=== PATIENT | female | born 1960 | race Caucasian/White ===

== ENCOUNTER 2018-07-27 13:48 | Observation (INO) ==
[2018-07-27] MEDS ORDERED: Mag Sulf 1 gm/100 ml Premix 100 ML IV.SIG ONE ×2 (16:55→20:00)
[2018-07-27] MEDS ORDERED: Potassium Chlor 20 mEq Premix 20 MEQ/100 ML PIGGYBACK IV.SIG ONE (16:55)
[2018-07-27] MEDS ORDERED: Calcium Gluconate Inj 1 GM in Dextrose 5% in Water Inj 100 ML IV.SIG ONE ×2 (17:05)
--- NOTE | 2018-07-27 17:05 | ED ---
HPI General Chief Complaint: Recheck/Abnormal Lab/Rx Stated Complaint: CHEMO PT / ABNOMRALLY LOW LABS Time Seen by Provider: 07/27/18 16:45 Source: patient Mode of arrival: ambulatory Limitations: no limitations History of Present Illness HPI narrative: 58-year-old female complaint generalized malaise and hypokalemia. Patient has history of throat cancer on chemotherapy. Patient has labs done recently and was found to have low sodium, low potassium. Patient was seen by personal physician 3 days ago and given IV potassium replacement and prescription for oral potassium supplement. Patient had repeat potassium level checked again today and was advised that potassium was low. Patient was advised to go to emergency room for evaluation. Patient denies any chest pain or shortness of breath. MD complaint: Reports abnormal lab Initial visit (ago): day(s) Initial visit for: other (Low potassium) Returns today for: called because of abnormal lab/test Description of abnormal result: Low potassium Symptoms since prior visit: Reports no new symptoms Context: Reports called for abnormal lab result Associated symptoms: Reports malaise Treatments prior to arrival: Reports other medications Related Data Home Medications Medication Instructions Recorded Confirmed Aleve PM 245 mg PO HS PRN 07/27/18 07/27/18 amlodipine 0 mg PO DAILY 07/27/18 07/27/18 amlodipine 10 mg PO DAILY 07/27/18 07/27/18 atenolol 25 mg PO DAILY 07/27/18 07/27/18 omeprazole 0 mg PO DAILY 07/27/18 07/27/18 Allergies Allergy/AdvReac Type Severity Reaction Status Date / Time lisinopril Allergy Severe Anaphylaxis Unverified 07/27/18 16:57 codeine Allergy Mild NAUSEA Unverified 07/27/18 16:57 amlodipine Allergy Unknown unknown Unverified 07/27/18 16:57 diclofenac Allergy Unknown unknown Unverified 07/27/18 16:57 etodolac Allergy Unknown unknown Unverified 07/27/18 16:57 flurbiprofen Allergy Unknown unknown Unverified 07/27/18 16:57 ibuprofen Allergy Unknown unknown Unverified 07/27/18 16:57 indomethacin Allergy Unknown unknown Unverified 07/27/18 16:57 ketoprofen Allergy Unknown unknown Unverified 07/27/18 16:57 ketorolac Allergy Unknown unknown Unverified 07/27/18 16:57 naproxen Allergy Unknown unknown Unverified 07/27/18 16:57 oxaprozin Allergy Unknown unknown Unverified 07/27/18 16:57 tramadol Allergy Unknown Nausea/Vomi Unverified 07/27/18 16:58 ting Review of Systems ROS: all other systems reviewed are negative PMFSH History History Provided By: Patient Medical History Medical History Hx of hysterectomy (Acute) Hypertension (Acute) Rheumatoid arthritis (Acute) Throat cancer (Acute) Surgical History Surgical History Hx of appendectomy (Acute) Hx of foot surgery (Acute) Hx of knee surgery (Acute) Hx of tonsillectomy (Acute) Social History Social History Substance History: No History of Abuse Second Hand Smoke Exposure: No Smoking Status: Current every day smoker Tobacco Type: Cigarettes How Often Do You Have a Drink Containing Alcohol: 4 or more times a week Recent Travel in [facility] within the Last 8 Weeks: No Recent Out of Country Travel within the Last 8 Weeks: No Exam Narrative Exam Narrative: GENERAL: Well-nourished, well-developed patient. SKIN: Focused skin assessment warm/dry. HEAD: Normocephalic. EYES: No scleral icterus. No injection or drainage. NECK: Supple, trachea midline. No JVD or lymphadenopathy. CARDIOVASCULAR: Regular rate and rhythm without murmurs, gallops, or rubs. RESPIRATORY: Breath sounds equal bilaterally. No accessory muscle use. GASTROINTESTINAL: Abdomen soft, non-tender, nondistended. MUSCULOSKELETAL: No cyanosis, or edema. BACK: Nontender without obvious deformity. No CVA tenderness. Neurologic exam normal. Course Initial Documented Vital Signs Temperature 99.4 F 07/27/18 14:11 Pulse Rate 80 07/27/18 14:11 Blood Pressure 95/64 L 07/27/18 14:11 Pulse Oximetry 97 07/27/18 14:11 Last Documented Vital Signs Temperature 99.4 F 07/27/18 20:00 Pulse Rate 74 07/27/18 20:00 Respiratory Rate 18 07/27/18 20:00 Blood Pressure 108/74 07/27/18 20:00 Pulse Oximetry 98 07/27/18 19:02 Medical Decision Making MDM Narrative Medical decision making narrative: 58-year-old female with generalized malaise and low potassium, low sodium, low calcium and low magnesium level. Normal saline solution with 20 KCl per liter at 100 cc an hour. Magnesium sulfate 1 g IV. Calcium gluconate 1 g IV. KCl 40 mEq p.o. given. KCl 40 mEq IV given. Medical Screen Exam Complete: Yes Emergency Medical Condition: Yes Differential Diagnosis Differential Diagnosis: Differential diagnosis including electrolyte abnormality , dehydration. Lab Data Lab results reviewed: Yes I reviewed the patient's lab results. Result diagrams: 07/27/18 17:22 07/27/18 17:22 Lab Results 07/27/18 07/27/18 07/27/18 Range/Units 17:22 17:22 18:56 CBC w Diff Slide review pending WBC 2.4 L (4.0-11.0) th/mm3 RBC 3.32 L (4.00-5.30) mil/mm3 Hgb 11.5 L (11.6-15.3) gm/dL Hct 32.5 L (35.0-46.0) % MCV 98.1 (80.0-100.0) fL MCH 34.6 H (27.0-34.0) pg MCHC 35.3 (32.0-36.0) % RDW 14.3 (11.6-17.2) % Plt Count 154 D (150-450) th/mm3 MPV 7.9 (7.0-11.0) fL Neut % (Auto) 80.0 H (16.0-70.0) % Lymph % (Auto) 5.3 L (9.0-44.0) % [place] % (Auto) 12.4 H (0.0-8.0) % Eos % (Auto) 0.8 (0.0-4.0) % Baso % (Auto) 1.5 (0.0-2.0) % Neut # (Auto) 2.0 (1.8-7.7) th/mm3 Lymph # (Auto) 0.1 L (1.0-4.8) th/mm3 [place] # (Auto) 0.3 (0.0-0.9) th/mm3 Eos # (Auto) 0.0 (0.0-0.4) th/mm3 Baso # (Auto) 0.0 (0.0-0.2) th/mm3 WBC Differential . Diff Scan Auto diff confirmed Differential Comment . Platelet Estimate Normal (Normal) Platelet Morphology Normal (Normal) RBC Morphology Normal (Normal) Sodium 125 L (136-145) meq/L Potassium 2.6 L* (3.5-5.1) meq/L Chloride 88 L (98-107) meq/L Carbon Dioxide 23.7 (21.0-32.0) meq/L Anion Gap 13 (5-15) meq/L BUN 5 L (7-18) mg/dL Creatinine 0.61 (0.50-1.00) mg/dL Estimated GFR Greater than 89 (>89) mL/min Random Glucose 108 H (74-106) mg/dL Calcium 6.2 L* (8.5-10.1) mg/dL Prot Corrected Calcium 6.8 L* (8.5-10.1) mg/dL Phosphorus 2.7 (2.5-4.9) mg/dL Magnesium 0.8 L (1.5-2.5) mg/dL Total Protein 5.8 L (6.4-8.2) g/dL TSH 1.830 (0.358-3.740) uIU/mL Urine Color Straw (Yellw/Straw) Urine Clarity Slightly cloudy (Clear) Urine pH 7.0 (5.0-8.5) Ur Specific [place] Less/equal 1.005 (1.002-1.035) Urine Protein Negative (Neg-Trace) mg/dL Urine Glucose (UA) Negative (Negative) mg/dL Urine Ketones Negative (Negative) mg/dL Urine Occult Blood Negative (Negative) Urine Nitrate Positive H (Negative) Urine Bilirubin Negative (Negative) Urine Urobilinogen 0.2 (Less than 2) mg/dL Ur Leukocyte Esterase Moderate H (Negative) Urine RBC 0-3 (0-3) /hpf Urine WBC 9-20 H (0-5) /hpf Ur Squamous Epith Cells Greater than 10 H (0-5) /hpf Urine Bacteria Many H (None) /hpf Micro UA Comment Culture indicated Ur Microscopic Review Microscopic reviewed Urine Culture Comments Culture indicated Discharge Plan Discharge Disposition Patient Disposition: 30 Still Patient Discharge Details Diagnosis: Acute hypokalemia, Acute hyponatremia, Hypomagnesemia, Hypocalcemia Physicians Team ED Provider: Bertin Bhatt Primary Care Provider: Logan Mejía Attending Provider: Andi Haynes Discharge Interventions Interventions: ED Discharge Assessment Last Done: 07/27/18 19:50 Status ED Status: Left Department Discharge Information Discharge Date/Time: 07/27/18 19:50
[2018-07-27 17:43] LABS: Baso % (Auto) 1.5 % (0.0-2.0); Eos % (Auto) 0.8 % (0.0-4.0); Hematocrit 32.5 % (35.0-46.0); Hemoglobin 11.5 gm/dL (11.6-15.3); Lymph # (Auto) 0.1 th/mm3 (1.0-4.8); Lymph % (Auto) 5.3 % (9.0-44.0); Mean Corpuscular HGB Conc 35.3 % (32.0-36.0); Mean Corpuscular Hemoglobin 34.6 pg (27.0-34.0); Mean Corpuscular Volume 98.1 fL (80.0-100.0); Mean Platelet Volume 7.9 fL (7.0-11.0); Mono # (Auto) 0.3 th/mm3 (0.0-0.9); Mono % (Auto) 12.4 % (0.0-8.0); Platelet Count 154 th/mm3 (150-450); Red Blood Count 3.32 mil/mm3 (4.00-5.30); Red Cell Distribution Width 14.3 % (11.6-17.2); White Blood Count 2.4 th/mm3 (4.0-11.0)
[2018-07-27 18:15] LABS: Platelet Estimate Normal (Normal); Platelet Morphology Normal (Normal); RBC Morphology Normal (Normal)
[2018-07-27 18:34] LABS: Anion Gap 13 meq/L (5-15); Blood Urea Nitrogen 5 mg/dL (7-18); Calcium 6.2 mg/dL (8.5-10.1); Carbon Dioxide 23.7 meq/L (21.0-32.0); Chloride 88 meq/L (98-107); Glomerular Filtration Rate Greater Than 89 mL/min (>89); Glucose,Random 108 mg/dL (74-106); Magnesium 0.8 mg/dL (1.5-2.5); Phosphorus 2.7 mg/dL (2.5-4.9); Sodium 125 meq/L (136-145)
[2018-07-27 18:37] LABS: Potassium 2.6 meq/L (3.5-5.1)
[2018-07-27] MEDS ORDERED: Bisacodyl 10 MG Supp RECTAL PRN (18:55)
[2018-07-27] MEDS ORDERED: Acetaminophen 325 MG Tablet PO PRN (18:55)
[2018-07-27 18:57] LABS: Total Protein 5.8 g/dL (6.4-8.2)
[2018-07-27 19:03] LABS: Bilirubin,Urine Negative (Negative); Clarity,Urine Slightly Cloudy (Clear); Glucose,Urine (UA) Negative (Negative); Leukocyte Esterase,Urine Moderate (Negative); Nitrite,Urine Positive (Negative); Specific Gravity,Urine Less/Equal 1.005 (1.002-1.035); Urobilinogen,Urine 0.2 mg/dL (Less than 2)
[2018-07-27 19:04] LABS: Color,Urine Straw (Yellw/Straw)
[2018-07-27 19:09] LABS: Bacteria,Urine Many /hpf; RBC,Urine 0-3 /hpf (0-3); Squamous Epithelial Cell,Urine Greater than 10 /hpf (0-5)
[2018-07-27] MEDS ORDERED: Magnesium Oxide 400 MG Tablet PO SCH (21:30)
[2018-07-27] MEDS ORDERED: Potassium Bicarbonate 25 MEQ Effervescent Tablet PO ONE (21:30)
[2018-07-27] MEDS: Calcium Carbonate 500 MG Tablet PO SCH (22:42)
[2018-07-27] MEDS: Potassium Chlor 20 mEq Premix 20 MEQ/100 ML PIGGYBACK IV.SIG ONE (23:33)
[2018-07-28 02:27] LABS: Chloride 92 meq/L (98-107); Potassium 3.3 meq/L (3.5-5.1); Sodium 128 meq/L (136-145)
[2018-07-28 02:41] LABS: Anion Gap 12 meq/L (5-15); Blood Urea Nitrogen 4 mg/dL (7-18); Calcium 6.1 mg/dL (8.5-10.1); Glomerular Filtration Rate Greater Than 89 mL/min (>89); Glucose,Random 94 mg/dL (74-106); Magnesium 1.4 mg/dL (1.5-2.5)
[2018-07-28 02:53] LABS: Total Protein 5.3 g/dL (6.4-8.2)
[2018-07-28] MEDS ORDERED: Mag Sulf 1 gm/100 ml Premix 100 ML IV.SIG ONE (03:26)
[2018-07-28] MEDS ORDERED: Calcium Gluconate Inj 1 GM in Dextrose 5% in Water Inj 100 ML IV.SIG ONE ×2 (04:00)
[2018-07-28] MEDS: Potassium Chlor 20 mEq Premix 20 MEQ/100 ML PIGGYBACK IV.SIG ONE (04:24)
[2018-07-28 04:47] VITALS: TEMP 96.6
[2018-07-28 06:40] LABS: Chloride 92 meq/L (98-107); Potassium 3.1 meq/L (3.5-5.1); Sodium 128 meq/L (136-145)
[2018-07-28 06:41] LABS: Hematocrit 35.3 % (35.0-46.0); Hemoglobin 12.1 gm/dL (11.6-15.3); Mean Corpuscular HGB Conc 34.2 % (32.0-36.0); Mean Corpuscular Hemoglobin 33.8 pg (27.0-34.0); Mean Corpuscular Volume 98.7 fL (80.0-100.0); Mean Platelet Volume 8.3 fL (7.0-11.0); Platelet Count 144 th/mm3 (150-450); Red Blood Count 3.58 mil/mm3 (4.00-5.30); Red Cell Distribution Width 14.6 % (11.6-17.2); White Blood Count 1.7 th/mm3 (4.0-11.0)
[2018-07-28 06:59] LABS: Anion Gap 12 meq/L (5-15); Blood Urea Nitrogen 4 mg/dL (7-18); Calcium 6.6 mg/dL (8.5-10.1); Carbon Dioxide 24.3 meq/L (21.0-32.0); Glomerular Filtration Rate Greater Than 89 mL/min (>89); Glucose,Random 92 mg/dL (74-106); Magnesium 1.9 mg/dL (1.5-2.5)
[2018-07-28] MEDS ORDERED: Potassium Bicarbonate 25 MEQ Effervescent Tablet PO ONE (07:51)
[2018-07-28] MEDS ORDERED: Magnesium Oxide 400 MG Tablet PO SCH (07:51)
[2018-07-28 08:25] VITALS: BP 111/74; PULSE 71; RESP 16; O2SAT 99
[2018-07-28] MEDS ORDERED: Potassium Bicarbonate 25 MEQ Effervescent Tablet PO SCH (09:00)
[2018-07-28] MEDS ORDERED: Pantoprazole Sodium 20 MG DR Tablet PO SCH (09:00)
[2018-07-28] MEDS: Calcium Carbonate 500 MG Tablet PO SCH (10:31)
--- NOTE | 2018-07-28 11:00 | P.HP ---
History of Present Illness Primary Care Physician: Logan Mejía Chief Complaint: Generalized malaise and multiple electrolyte abnormalities History of Present Illness: This is a 58-year-old female with a history of alcohol abuse, hypertension, rheumatoid arthritis, neuropathy and throat cancer on chemotherapy and radiation therapy. Patient was sent by her oncologist to the emergency room because of multiple significant electrolyte abnormalities including sodium 125 potassium 2.6 magnesium 0.8 and calcium 6.8. Patient only complaint is weakness which is actually improving. Denies nausea, vomiting, UTI symptoms and diarrhea. She admits to poor oral intake. She tells me she will be taking food supplements. She also drinks 2 beers daily and will at back on it. Today she has no complaints and wants to be discharge. Her electrolytes are much improved potassium of 3.1, sodium 128, magnesium 1.9 and calcium 7.1. All other systems reviewed negative Review of Systems All other systems reviewed negative except as stated in HPI PMFSH - History History Provided By: Patient - Medical History Medical History: Medical History (Last Reviewed 07/28/18 @ 10:59 by Andi Haynes MD) Hx of hysterectomy Hypertension Rheumatoid arthritis Throat cancer - Surgical History Surgical History: Surgical History (Last Reviewed 07/28/18 @ 10:59 by Andi Haynes MD) Hx of appendectomy Hx of foot surgery Hx of knee surgery Hx of tonsillectomy - Family History Family History: Family History (Last Updated 07/28/18 @ 10:59 by Andi Haynes MD) Other No pertinent family history - Tobacco History Second Hand Smoke Exposure: No Tobacco Use In Past 30 Days: Yes Smoking Status: Current every day smoker Tobacco Type: Cigarettes - Alcohol History How Often Do You Have a Drink Containing Alcohol: 4 or more times a week - Substance Use History Substance History: No History of Abuse - Travel History Recent Travel in the [place] Within the Last 8 Weeks: No Recent Travel Out of the Country Within the Last 8 Weeks: No - Immunization History Tetanus Immunization: Unsure Medications and Allergies Active Medications: Active Medications Acetaminophen (Tylenol) 650 mg PO Q4H PRN PRN Reason: Temp > 100.4 Al Hydroxide/Mg Hydroxide (Milk Of Magnesia Liq) 30 ml PO Q12H PRN PRN Reason: Mild Constipation Bisacodyl (Dulcolax Supp) 10 mg RECTAL DAILY PRN PRN Reason: SEVERE CONSITIPATION Calcium Carbonate (Oscal) 1,000 mg PO BID [facility] Last Admin: 07/28/18 10:31 Dose: 1,000 mg Potassium Chloride/Sodium Chloride (Ns + Kcl 20 Meq Inj) 1,000 mls @ 100 mls/ hr IV.CONT .Q10H [facility] Last Infusion: 07/28/18 06:00 Dose: 100 mls/hr Lactulose (Lactulose Liq) 30 ml PO DAILY PRN PRN Reason: SEVERE CONSITIPATION Magnesium Oxide (Mag-Ox) 400 mg PO BID [facility] Last Admin: 07/28/18 10:31 Dose: 400 mg Ondansetron HCl (Zofran Inj) 4 mg IV.PUSH Q6H PRN PRN Reason: NAUSEA OR VOMITING Pantoprazole Sodium (Protonix) 20 mg PO DAILY [facility] Last Admin: 07/28/18 10:31 Dose: 20 mg Potassium Bicarbonate (Effer-K) 50 meq PO DAILY [facility] Last Admin: 07/28/18 10:31 Dose: 50 meq Sennosides (Senokot) 17.2 mg PO Q12H PRN PRN Reason: Moderate Constipation Allergies Allergy/AdvReac Type Severity Reaction Status Date / Time lisinopril Allergy Severe Anaphylaxis Unverified 07/27/18 16:57 codeine Allergy Mild NAUSEA Unverified 07/27/18 16:57 amlodipine Allergy Unknown unknown Unverified 07/27/18 16:57 diclofenac Allergy Unknown unknown Unverified 07/27/18 16:57 etodolac Allergy Unknown unknown Unverified 07/27/18 16:57 flurbiprofen Allergy Unknown unknown Unverified 07/27/18 16:57 ibuprofen Allergy Unknown unknown Unverified 07/27/18 16:57 indomethacin Allergy Unknown unknown Unverified 07/27/18 16:57 ketoprofen Allergy Unknown unknown Unverified 07/27/18 16:57 ketorolac Allergy Unknown unknown Unverified 07/27/18 16:57 naproxen Allergy Unknown unknown Unverified 07/27/18 16:57 oxaprozin Allergy Unknown unknown Unverified 07/27/18 16:57 tramadol Allergy Unknown Nausea/Vomi Unverified 07/27/18 16:58 ting Home Medications Medication Instructions Recorded Confirmed Type Aleve PM 245 mg PO HS PRN 07/27/18 07/27/18 History amlodipine 0 mg PO DAILY 07/27/18 07/27/18 History amlodipine 10 mg PO DAILY 07/27/18 07/27/18 History atenolol 25 mg PO DAILY 07/27/18 07/27/18 History omeprazole 0 mg PO DAILY 07/27/18 07/27/18 History Exam Vital signs: Vital Signs 07/27/18 14:11 07/27/18 19:02 07/27/18 20:00 Temperature 99.4 F 99.4 F Pulse Rate 80 73 74 Respiratory Rate 16 18 Blood Pressure 95/64 L 103/78 108/74 Pulse Oximetry 97 98 07/27/18 21:45 07/28/18 00:00 07/28/18 04:45 Temperature 97.7 F 96.6 F L Pulse Rate 76 72 75 Respiratory Rate 18 18 Blood Pressure 102/72 99/67 L Pulse Oximetry 94 L 07/28/18 08:00 Temperature 96.6 F L Pulse Rate 71 Respiratory Rate 16 Blood Pressure 111/74 Pulse Oximetry 99 Intake & Output 07/27/18 07/28/18 07/28/18 18:59 06:59 18:59 Intake Total 100 / 100 1590 / 1590 Balance 100 / 100 1590 / 1590 Weight 51.3 kg 52.6 kg Intake: IV 100 / 100 1070 / 1070 NS + KCl 20 mEq Inj 1,000 ML @ 550 / 550 100 mls/hr IV.CONT .Q10H [facility] Rx #:[id number] Calcium Gluconate Inj 1 GM In 220 / 220 D5W Inj 100 ML @ 110 mls/hr IV. SIG ONCE ONE Rx#:[id number] Magnesium Sulfate 1 gm/D5W 100 100 / 100 200 / 200 ml Premix 100 ML @ 100 mls/hr IV.SIG ONCE ONE Rx#:[id number] KCl 20 mEq Premix Inj 20 meq In 100 / 100 100 ml @ 50 mls/hr IV.SIG ONCE ONE Rx#:[id number] Oral 520 / 520 Other: # Voids 4 Date of Last Bowel Movement 07/26/18 Weight On Admission 51.4 kg Narrative: GENERAL: WD WN in [place]. No signs of dehydration SKIN: Warm and dry. HEAD: Atraumatic. Normocephalic. EYES: Pupils equal and round. No scleral icterus. No injection or drainage. ENT: No nasal bleeding or discharge. Mucous membranes pink and moist. NECK: Trachea midline. No JVD. CARDIOVASCULAR: Regular rate and rhythm. RESPIRATORY: No accessory muscle use. Clear to auscultation. Breath sounds equal bilaterally. GASTROINTESTINAL: Abdomen soft, non-tender, nondistended. MUSCULOSKELETAL: Extremities without clubbing, cyanosis, or edema. No obvious deformities. NEUROLOGICAL: Awake and alert. No obvious cranial nerve deficits. Motor grossly within normal limits. Five out of 5 muscle strength in the arms and legs. Normal speech. PSYCHIATRIC: Appropriate mood and affect; insight and judgment normal. Results - Labs CBC & Chem 7: 07/28/18 05:27 07/28/18 05:27 Labs: Laboratory Results - last 24 hr 07/27/18 07/27/18 07/27/18 17:22 17:22 18:56 CBC w Diff Slide review pending WBC 2.4 L RBC 3.32 L Hgb 11.5 L Hct 32.5 L MCV 98.1 MCH 34.6 H MCHC 35.3 RDW 14.3 Plt Count 154 D MPV 7.9 Neut % (Auto) 80.0 H Lymph % (Auto) 5.3 L [place] % (Auto) 12.4 H Eos % (Auto) 0.8 Baso % (Auto) 1.5 Neut # (Auto) 2.0 Lymph # (Auto) 0.1 L [place] # (Auto) 0.3 Eos # (Auto) 0.0 Baso # (Auto) 0.0 WBC Differential . Diff Scan Auto diff confirmed Differential Comment . Platelet Estimate Normal Platelet Morphology Normal RBC Morphology Normal Sodium 125 L Potassium 2.6 L* Chloride 88 L Carbon Dioxide 23.7 Anion Gap 13 BUN 5 L Creatinine 0.61 Estimated GFR Greater than 89 Random Glucose 108 H Calcium 6.2 L* Prot Corrected Calcium 6.8 L* Phosphorus 2.7 Magnesium 0.8 L Total Protein 5.8 L TSH 1.830 Urine Color Straw Urine Clarity Slightly cloudy Urine pH 7.0 Ur Specific [place] Less/equal 1.005 Urine Protein Negative Urine Glucose (UA) Negative Urine Ketones Negative Urine Occult Blood Negative Urine Nitrate Positive H Urine Bilirubin Negative Urine Urobilinogen 0.2 Ur Leukocyte Esterase Moderate H Urine RBC 0-3 Urine WBC 9-20 H Ur Squamous Epith Cells Greater than 10 H Urine Bacteria Many H Micro UA Comment Culture indicated Ur Microscopic Review Microscopic reviewed Urine Culture Comments Culture indicated 07/28/18 07/28/18 07/28/18 02:05 05:27 05:27 CBC w Diff WBC 1.7 L RBC 3.58 L Hgb 12.1 Hct 35.3 MCV 98.7 MCH 33.8 MCHC 34.2 RDW 14.6 Plt Count 144 L MPV 8.3 Neut % (Auto) Lymph % (Auto) [place] % (Auto) Eos % (Auto) Baso % (Auto) Neut # (Auto) Lymph # (Auto) [place] # (Auto) Eos # (Auto) Baso # (Auto) WBC Differential Diff Scan Differential Comment Platelet Estimate Platelet Morphology RBC Morphology Sodium 128 L 128 L Potassium 3.3 L 3.1 L Chloride 92 L 92 L Carbon Dioxide 24.0 24.3 Anion Gap 12 12 BUN 4 L 4 L Creatinine 0.45 L 0.49 L Estimated GFR Greater than 89 Greater than 89 Random Glucose 94 92 Calcium 6.1 L* 6.6 L* Prot Corrected Calcium 6.9 L* 7.1 L* Phosphorus Magnesium 1.4 L D 1.9 Total Protein 5.3 L 6.0 L D TSH Urine Color Urine Clarity Urine pH Ur Specific [place] Urine Protein Urine Glucose (UA) Urine Ketones Urine Occult Blood Urine Nitrate Urine Bilirubin Urine Urobilinogen Ur Leukocyte Esterase Urine RBC Urine WBC Ur Squamous Epith Cells Urine Bacteria Micro UA Comment Ur Microscopic Review Urine Culture Comments Caprini VTE Risk Assessment Caprini VTE Risk Assessment: Moderate/High Risk (score >= 2) Caprini Risk Assessment Model: Point Value = 1 Point Value = 2 Point Value = 3 Point Value = 5 Age 41-60 Minor surgery BMI > 25 kg/m2 Swollen legs Varicose veins or History of unexplained or recurrent spontaneous Oral contraceptives or hormone replacement Sepsis (< 1 month) Serious lung disease, including pneumonia (< 1 month) Abnormal pulmonary function Acute myocardial infarction Congestive heart failure (< 1 month) History of inflammatory bowel disease Medical patient at bed rest Age 61-74 Arthroscopic surgery Major open surgery (> 45 min) Laparoscopic surgery (> 45 min) Malignancy Confined to bed (> 72 hours) Immobilizing plaster cast Central venous access Age >= 75 History of VTE Family history of VTE Factor V Leiden Prothrombin [id number] Lupus anticoagulant Anticardiolipin antibodies Elevated serum homocysteine Heparin-induced thrombocytopenia Other congenital or acquired thrombophilia Stroke (< 1 month) Elective arthroplasty Hip, pelvis, or leg fracture Acute spinal cord injury (< 1 month) Prophylaxis Regimen: Total Risk Factor Score Risk Level Prophylaxis Regimen 0-1 Low Early ambulation 2 Moderate Order ONE of the following: *Sequential Compression Device (SCD) *Heparin 5000 units SQ BID 3-4 Higher Order ONE of the following medications: *Heparin 5000 units SQ TID *Enoxaparin/Lovenox 40 mg SQ daily (WT < 150 kg, CrCl > 30 mL/min) *Enoxaparin/Lovenox 30 mg SQ daily (WT < 150 kg, CrCl > 10-29 mL/min) *Enoxaparin/Lovenox 30 mg SQ BID (WT < 150 kg, CrCl > 30 mL/min) AND/OR *Sequential Compression Device (SCD) 5 or more Highest Order ONE of the following medications: *Heparin 5000 units SQ TID (Preferred with Epidurals) *Enoxaparin/Lovenox 40 mg SQ daily (WT < 150 kg, CrCl > 30 mL/min) *Enoxaparin/Lovenox 30 mg SQ daily (WT < 150 kg, CrCl > 10-29 mL/min) *Enoxaparin/Lovenox 30 mg SQ BID (WT < 150 kg, CrCl > 30 mL/min) AND *Sequential Compression Device (SCD) Assessment and Plan - Plan This is a 58-year-old female with a history of alcohol abuse, hypertension, rheumatoid arthritis, neuropathy and throat cancer on chemotherapy and radiation therapy. Presents with multiple significant electrolyte abnormalities Hyponatremia, hypokalemia, hypomagnesemia and hypocalcemia secondary to poor nutrition from poor oral intake and alcohol abuse. She has history of throat cancer currently on chemotherapy and radiation treatments. She is clinically better with improved electrolyte abnormalities after aggressive replacement overnight. Patient will be discharged home with p.o. calcium, magnesium and potassium. Hyponatremia(Beer potomania) is expected to resolve with alcohol cessation. CIWA protocol. Leukopenia on chemotherapy. Monitor. Patient has an appointment with her oncologist tomorrow. Abnormal urinalysis. No UTI symptoms. Follow-up urine culture DVT prophylaxis with SCD and early ambulation Discharge Planning: Discharge patient to home Condition on discharge: Improved Regular Diet as tolerated Ad Kari activity no driving Rx written: Magnesium, potassium and calcium Follow-up with primary care physician, medical and radiation oncology
--- NOTE | 2018-07-28 15:19 | ECG ---
Date Performed: 07/27/2018 Time Performed: 17:14:24 PTAGE: 58 years EKG: Sinus rhythm MINIMAL ST DEPRESSION BORDERLINE ECG PREVIOUS TRACING : 10/28/2015 07.46 Since the previous tracing, no significant change noted DOCTOR: Johnathan Arreguin Interpretating Date/Time 07/28/2018 15:17:29
== END 2018-07-28 12:35 | disposition home or self-care (01) ==
LOC: PHED 13:48 → PHEDA 13:48 → PH3 19:50
PROVIDERS: ADMIT Internal Medicine; ATTEND Internal Medicine
DX: Z79.899 Other long term (current) drug therapy; B96.20 Unspecified Escherichia coli [E. coli] as the cause of diseases classified elsewhere; C32.1 Malignant neoplasm of supraglottis; M06.9 Rheumatoid arthritis, unspecified; D72.819 Decreased white blood cell count, unspecified; C05.1 Malignant neoplasm of soft palate; R53.81 Other malaise; I10 Essential (primary) hypertension; G62.9 Polyneuropathy, unspecified; F17.210 Nicotine dependence, cigarettes, uncomplicated; E87.6 Hypokalemia; E87.1 Hypo-osmolality and hyponatremia; E83.51 Hypocalcemia; E83.42 Hypomagnesemia; F10.10 Alcohol abuse, uncomplicated; C14.0 Malignant neoplasm of pharynx, unspecified

== ENCOUNTER 2018-09-21 06:47 | Inpatient (IN) ==
[2018-09-21] MEDS ORDERED: Pantoprazole Inj 40 MG Vial IV.PUSH ONE (07:17)
[2018-09-21] MEDS ORDERED: Sod Chloride 0.9% Inj 1,000 ML IV.SIG ONE (07:17)
--- NOTE | 2018-09-21 07:17 | ED ---
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 Patient had procedure started 1 month ago and had significant ulceration to the mouth and poor healing. Present is her states that she has significant anorexia and what he feels is significant depression. She refuses to eat or drink fluids despite the fact the ulceration in the mouth is largely healed. Additionally patient has had significant diarrhea since Friday. Related Data Home Medications Medication Instructions Recorded Confirmed omeprazole 20 mg PO DAILY 07/27/18 09/21/18 B Complex 1 tab PO DAILY 09/21/18 09/21/18 Probiotic 1 tab PO DAILY 09/21/18 09/21/18 Vitamin B-12 500 mg PO DAILY 09/21/18 09/21/18 Vitamin C 500 mg PO DAILY 09/21/18 09/21/18 amlodipine 10 mg PO DAILY 09/21/18 09/21/18 iron 28 mg PO DAILY 09/21/18 09/21/18 magnesium 250 mg PO DAILY 09/21/18 09/21/18 potassium 550 mg PO DAILY 09/21/18 09/21/18 Allergies Allergy/AdvReac Type Severity Reaction Status Date / Time lisinopril Allergy Severe Anaphylaxis Verified 09/21/18 07:24 codeine Allergy Mild NAUSEA Verified 09/21/18 07:24 tramadol Allergy Unknown Nausea/Vomi Verified 09/21/18 07:24 ting Review of Systems ROS: all other systems reviewed are negative [facility] Medical History Medical History Hypertension (Chronic) Rheumatoid arthritis (Chronic) Throat cancer (Chronic) Surgical History Surgical History H/O arthroscopic knee surgery (Acute) Hx of appendectomy (Acute) Hx of foot surgery (Acute) Hx of hysterectomy (Acute) Hx of knee surgery (Acute) Hx of tonsillectomy (Acute) Family History Family History Other No pertinent family history Social History Social History Substance History: No History of Abuse and Active Abuse Second Hand Smoke Exposure: Yes Smoking Status: Current every day smoker Tobacco Type: Cigarettes How Often Do You Have a Drink Containing Alcohol: 4 or more times a week Recent Travel in [facility] within the Last 8 Weeks: No Recent Out of Country Travel within the Last 8 Weeks: No Immunization History Tetanus Immunization: Unsure Exam Narrative Exam Narrative: GENERAL: Apathy with poor response. SKIN: Focused skin assessment warm/dry. HEAD: Atraumatic. Normocephalic. EYES: Pupils equal and round. No scleral icterus. No injection or drainage. ENT: No nasal bleeding or discharge. Mucous membranes pink and moist. Oral ulcerations NECK: Trachea midline. No JVD. Significant adenopathy CARDIOVASCULAR: Regular rate and rhythm. No murmur appreciated. RESPIRATORY: No accessory muscle use. Clear to auscultation. Breath sounds equal bilaterally. GASTROINTESTINAL: Abdomen soft, non-tender, nondistended. Hepatic and splenic margins not palpable. MUSCULOSKELETAL: No obvious deformities. No clubbing. No cyanosis. No edema. NEUROLOGICAL: Awake and alert. No obvious cranial nerve deficits. Motor grossly within normal limits. Normal speech. PSYCHIATRIC: Significant depression Course Initial Documented Vital Signs Temperature 97.6 F 09/21/18 07:06 Pulse Rate 75 09/21/18 07:06 Respiratory Rate 16 09/21/18 07:06 Blood Pressure 145/90 H 09/21/18 07:06 Pulse Oximetry 97 09/21/18 07:06 Last Documented Vital Signs Temperature 97.7 F 09/22/18 08:00 Pulse Rate 82 09/22/18 09:39 Respiratory Rate 22 09/22/18 08:00 Blood Pressure 155/95 H 09/22/18 08:00 Pulse Oximetry 96 09/22/18 08:00 Medical Decision Making MDM Narrative Medical decision making narrative: Hyponatremia and hypocalcemia as well as significant anorexia and depression. Medical Screen Exam Complete: Yes Emergency Medical Condition: Yes Medical Records Medical records reviewed: Yes I reviewed the patient's medical records. Lab Data Result diagrams: 09/22/18 04:50 09/21/18 17:45 Lab Results 09/21/18 09/21/18 09/21/18 Range/Units 07:50 07:50 07:50 CBC w Diff Auto diff final WBC 7.1 (4.0-11.0) th/mm3 RBC 3.47 L (4.00-5.30) mil/mm3 Hgb 10.9 L (11.6-15.3) gm/dL Hct 33.4 L (35.0-46.0) % MCV 96.3 (80.0-100.0) fL MCH 31.5 (27.0-34.0) pg MCHC 32.8 (32.0-36.0) % RDW 15.2 (11.6-17.2) % Plt Count 304 D (150-450) th/mm3 MPV 8.4 (7.0-11.0) fL Neut % (Auto) 90.2 H (16.0-70.0) % Lymph % (Auto) 4.1 L (9.0-44.0) % [place] % (Auto) 4.8 (0.0-8.0) % Eos % (Auto) 0.1 (0.0-4.0) % Baso % (Auto) 0.8 (0.0-2.0) % Neut # (Auto) 6.4 (1.8-7.7) th/mm3 Lymph # (Auto) 0.3 L (1.0-4.8) th/mm3 [place] # (Auto) 0.3 (0.0-0.9) th/mm3 Eos # (Auto) 0.0 (0.0-0.4) th/mm3 Baso # (Auto) 0.1 (0.0-0.2) th/mm3 WBC Differential . Differential Comment . ESR 42 H (0-30) mm/hr Sodium 126 L (136-145) meq/L Potassium 2.6 L* (3.5-5.1) meq/L Chloride 85 L (98-107) meq/L Carbon Dioxide 20.8 L (21.0-32.0) meq/L Anion Gap 20 H (5-15) meq/L BUN 3 L (7-18) mg/dL Creatinine 0.44 L (0.50-1.00) mg/dL Estimated GFR Greater than 89 (>89) mL/min Random Glucose 91 (74-106) mg/dL Calcium 5.2 L* (8.5-10.1) mg/dL Calcium Adj for Albumin 5.6 L* (8.5-10.1) mg/dL Magnesium Less than 0.3 L (1.5-2.5) mg/dL Total Bilirubin 0.5 (0.2-1.0) mg/dL AST 45 H (15-37) U/L ALT 16 (10-53) U/L Alkaline Phosphatase 71 (45-117) U/L Total Protein 6.1 L (6.4-8.2) g/dL Albumin 2.6 L (3.4-5.0) g/dL TSH 7.480 H (0.358-3.740) uIU/mL Free T4 (0.76-1.46) ng/dL Thyroxine (T4) (4.8-13.9) mcg/dL Urine Color (Yellw/Straw) Urine Clarity (Clear) Urine pH (5.0-8.5) Ur Specific [place] (1.002-1.035) Urine Protein (Neg-Trace) mg/dL Urine Glucose (UA) (Negative) mg/dL Urine Ketones (Negative) mg/dL Urine Occult Blood (Negative) Urine Nitrate (Negative) Urine Bilirubin (Negative) Urine Urobilinogen (Less than 2) mg/dL Ur Leukocyte Esterase (Negative) Urine RBC (0-3) /hpf Urine WBC (0-5) /hpf Ur Squamous Epith Cells (0-5) /hpf Urine Bacteria (None) /hpf Micro UA Comment Ur Microscopic Review Urine Culture Comments Stl C.difficile DNA Amp (Negative) St C. diff Tox Epid 027 (Negative) 09/21/18 09/21/18 09/21/18 Range/Units 08:10 16:00 17:45 CBC w Diff WBC (4.0-11.0) th/mm3 RBC (4.00-5.30) mil/mm3 Hgb (11.6-15.3) gm/dL Hct (35.0-46.0) % MCV (80.0-100.0) fL MCH (27.0-34.0) pg MCHC (32.0-36.0) % RDW (11.6-17.2) % Plt Count (150-450) th/mm3 MPV (7.0-11.0) fL Neut % (Auto) (16.0-70.0) % Lymph % (Auto) (9.0-44.0) % [place] % (Auto) (0.0-8.0) % Eos % (Auto) (0.0-4.0) % Baso % (Auto) (0.0-2.0) % Neut # (Auto) (1.8-7.7) th/mm3 Lymph # (Auto) (1.0-4.8) th/mm3 [place] # (Auto) (0.0-0.9) th/mm3 Eos # (Auto) (0.0-0.4) th/mm3 Baso # (Auto) (0.0-0.2) th/mm3 WBC Differential Differential Comment ESR (0-30) mm/hr Sodium 129 L (136-145) meq/L Potassium 2.6 L* (3.5-5.1) meq/L Chloride 91 L (98-107) meq/L Carbon Dioxide 19.8 L (21.0-32.0) meq/L Anion Gap 18 H (5-15) meq/L BUN 3 L (7-18) mg/dL Creatinine 0.31 L (0.50-1.00) mg/dL Estimated GFR Greater than 89 (>89) mL/min Random Glucose 76 (74-106) mg/dL Calcium Less than 5.0 L* (8.5-10.1) mg/dL Calcium Adj for Albumin 6.5 L* (8.5-10.1) mg/dL Magnesium (1.5-2.5) mg/dL Total Bilirubin (0.2-1.0) mg/dL AST (15-37) U/L ALT (10-53) U/L Alkaline Phosphatase (45-117) U/L Total Protein (6.4-8.2) g/dL Albumin 2.1 L (3.4-5.0) g/dL TSH (0.358-3.740) uIU/mL Free T4 1.08 (0.76-1.46) ng/dL Thyroxine (T4) 7.8 (4.8-13.9) mcg/dL Urine Color Yellow (Yellw/Straw) Urine Clarity Clear (Clear) Urine pH 6.5 (5.0-8.5) Ur Specific [place] 1.010 (1.002-1.035) Urine Protein Negative (Neg-Trace) mg/dL Urine Glucose (UA) Negative (Negative) mg/dL Urine Ketones 40 H (Negative) mg/dL Urine Occult Blood Negative (Negative) Urine Nitrate Negative (Negative) Urine Bilirubin Negative (Negative) Urine Urobilinogen 0.2 (Less than 2) mg/dL Ur Leukocyte Esterase Small H (Negative) Urine RBC 0-3 (0-3) /hpf Urine WBC 6-8 H (0-5) /hpf Ur Squamous Epith Cells 0-5 (0-5) /hpf Urine Bacteria Few H (None) /hpf Micro UA Comment Culture not ind Ur Microscopic Review Microscopic reviewed Urine Culture Comments Culture not ind Stl C.difficile DNA Amp (Negative) St C. diff Tox Epid 027 (Negative) 09/21/18 09/22/18 09/22/18 Range/Units 23:40 04:50 04:50 CBC w Diff WBC 6.1 (4.0-11.0) th/mm3 RBC 3.03 L (4.00-5.30) mil/mm3 Hgb 9.9 L (11.6-15.3) gm/dL Hct 29.5 L (35.0-46.0) % MCV 97.5 (80.0-100.0) fL MCH 32.6 (27.0-34.0) pg MCHC 33.5 (32.0-36.0) % RDW 15.8 (11.6-17.2) % Plt Count 265 (150-450) th/mm3 MPV 7.9 (7.0-11.0) fL Neut % (Auto) (16.0-70.0) % Lymph % (Auto) (9.0-44.0) % [place] % (Auto) (0.0-8.0) % Eos % (Auto) (0.0-4.0) % Baso % (Auto) (0.0-2.0) % Neut # (Auto) (1.8-7.7) th/mm3 Lymph # (Auto) (1.0-4.8) th/mm3 [place] # (Auto) (0.0-0.9) th/mm3 Eos # (Auto) (0.0-0.4) th/mm3 Baso # (Auto) (0.0-0.2) th/mm3 WBC Differential Differential Comment ESR (0-30) mm/hr Sodium (136-145) meq/L Potassium (3.5-5.1) meq/L Chloride (98-107) meq/L Carbon Dioxide (21.0-32.0) meq/L Anion Gap (5-15) meq/L BUN (7-18) mg/dL Creatinine (0.50-1.00) mg/dL Estimated GFR (>89) mL/min Random Glucose (74-106) mg/dL Calcium Less than 5.0 L* (8.5-10.1) mg/dL Calcium Adj for Albumin 6.5 L* (8.5-10.1) mg/dL Magnesium Less than 0.3 L (1.5-2.5) mg/dL Total Bilirubin (0.2-1.0) mg/dL AST (15-37) U/L ALT (10-53) U/L Alkaline Phosphatase (45-117) U/L Total Protein (6.4-8.2) g/dL Albumin 2.1 L (3.4-5.0) g/dL TSH (0.358-3.740) uIU/mL Free T4 (0.76-1.46) ng/dL Thyroxine (T4) (4.8-13.9) mcg/dL Urine Color (Yellw/Straw) Urine Clarity (Clear) Urine pH (5.0-8.5) Ur Specific [place] (1.002-1.035) Urine Protein (Neg-Trace) mg/dL Urine Glucose (UA) (Negative) mg/dL Urine Ketones (Negative) mg/dL Urine Occult Blood (Negative) Urine Nitrate (Negative) Urine Bilirubin (Negative) Urine Urobilinogen (Less than 2) mg/dL Ur Leukocyte Esterase (Negative) Urine RBC (0-3) /hpf Urine WBC (0-5) /hpf Ur Squamous Epith Cells (0-5) /hpf Urine Bacteria (None) /hpf Micro UA Comment Ur Microscopic Review Urine Culture Comments Stl C.difficile DNA Amp Negative (Negative) St C. diff Tox Epid 027 Negative (Negative) Discharge Plan Discharge Disposition Patient Disposition: ED Admit(ED Internal Use Only) Discharge Condition Condition: Stable Discharge Order Discharge Orders: ED Use Only Admit Order (Routine); Ordered 09/21/18 Ordered By: Damian Briones Discharge Details Diagnosis: Acute hypokalemia, Hypocalcemia, Hypothyroidism, Acute dehydration Physicians Team ED Provider: Damian Briones Primary Care Provider: Logan Mejía Attending Provider: Alix Meyer Status ED Status: Left Department Discharge Information Discharge Date/Time: 09/21/18 12:00
[2018-09-21] MEDS ORDERED: Sod Chloride 0.9% Inj 1,000 ML IV.CONT SCH (07:30)
[2018-09-21 07:57] LABS: Baso # (Auto) 0.1 th/mm3 (0.0-0.2); Baso % (Auto) 0.8 % (0.0-2.0); Eos % (Auto) 0.1 % (0.0-4.0); Hematocrit 33.4 % (35.0-46.0); Hemoglobin 10.9 gm/dL (11.6-15.3); Lymph # (Auto) 0.3 th/mm3 (1.0-4.8); Lymph % (Auto) 4.1 % (9.0-44.0); Mean Corpuscular HGB Conc 32.8 % (32.0-36.0); Mean Corpuscular Hemoglobin 31.5 pg (27.0-34.0); Mean Corpuscular Volume 96.3 fL (80.0-100.0); Mean Platelet Volume 8.4 fL (7.0-11.0); Mono # (Auto) 0.3 th/mm3 (0.0-0.9); Mono % (Auto) 4.8 % (0.0-8.0); Neut # (Auto) 6.4 th/mm3 (1.8-7.7); Neut % (Auto) 90.2 % (16.0-70.0); Platelet Count 304 th/mm3 (150-450); Red Blood Count 3.47 mil/mm3 (4.00-5.30); Red Cell Distribution Width 15.2 % (11.6-17.2); White Blood Count 7.1 th/mm3 (4.0-11.0)
[2018-09-21 08:25] LABS: Alanine Aminotransferase 16 U/L (10-53); Albumin 2.6 g/dL (3.4-5.0); Alkaline Phosphatase 71 U/L (45-117); Anion Gap 20 meq/L (5-15); Aspartate Aminotransferase 45 U/L (15-37); Blood Urea Nitrogen 3 mg/dL (7-18); Calcium 5.2 mg/dL (8.5-10.1); Carbon Dioxide 20.8 meq/L (21.0-32.0); Chloride 85 meq/L (98-107); Glomerular Filtration Rate Greater Than 89 mL/min (>89); Glucose,Random 91 mg/dL (74-106); Sodium 126 meq/L (136-145); Total Protein 6.1 g/dL (6.4-8.2)
[2018-09-21 08:31] LABS: Potassium 2.6 meq/L (3.5-5.1)
[2018-09-21] MEDS ORDERED: Calcium Gluconate Inj 1 GM in Dextrose 5% in Water Inj 100 ML IV.SIG ONE ×2 (08:53)
[2018-09-21] MEDS ORDERED: Potassium Chloride Inj 10 MEQ, Sodium Chloride 23.4% Inj 38.5 MEQ in Water for Inj, Ste... IV.CONT SCH (09:00)
[2018-09-21] MEDS: SODIUM CHLORIDE 0.45% IV.CONT SCH (10:12)
[2018-09-21] MEDS: POTASSIUM CHLORIDE IV.CONT SCH (10:12)
[2018-09-21] MEDS ORDERED: Bisacodyl 10 MG Supp RECTAL PRN (10:18)
[2018-09-21] MEDS ORDERED: Acetaminophen 325 MG Tablet PO PRN (10:18)
[2018-09-21] MEDS: Sod Chloride 0.9% Inj 1,000 ML IV.CONT SCH ×4 (10:20→19:30)
[2018-09-21 14:02] LABS: Free T4 (Free Thyroxine) 1.08 ng/dL (0.76-1.46); T4 (Thyroxine) 7.8 mcg/dL (4.8-13.9)
--- NOTE | 2018-09-21 15:11 | P.HPIM ---
History of Present Illness Primary Care Physician: Logan Mejía Patient is very very pleasant 58-year-old female with past medical history of rheumatoid arthritis, hypertension, neuropathy and throat cancer status post chemo and radiation therapy who presents to emergency room for worsening fatigue , generalized weakness, episode of diarrhea (nonbloody), weight loss, and reduced p.o. intake. As per time also present at the bedside patient completed latus treatment cycle 1 month ago and since then has had progressive decline requiring recent hospitalization approximately 2 weeks ago. Patient reports that she initially had oral sores in her mouth which made it very difficult to tolerate p.o. diet which led to reduced intake and subsequent decline. On presentation symptoms have recurred and has been reports that on Friday and Friday patient had profuse diarrhea which is since resolved but her nausea has not improved and she is progressively become weak and unable to tolerate p.o. intake. In regards to her diarrhea patient denies recent antibiotic use but does have a known history of recent hospitalization. Patient denies subjective fever or chills. Patient denies chest pain, blurry vision, headache, change in hearing or tinnitus, hemoptysis, or new skin changes including rash. As per prior documentation patient in the past has been offered opportunity for PEG and/or G-tube placement but has declined such therapy. In emergency department patient was found to have multiple I abnormalities including hypocalcemia and hypokalemia. Patient was initially supplemented with IV fluids with potassium and medicine was consulted for admission. Inpatient Certification Inpatient Certification: I certify that the inpatient services were ordered in accordance with Medicare regulations governing the order. This includes certification that hospital inpatient services are reasonable and necessary and in the case of services not specified as inpatient-only under 42 CFR 419.22(n), that they are appropriately provided as inpatient services in accordance to with the 2-midnight benchmark under 43 CFR 412.3(e) Estimated Total Length of Stay (Days): 3 Plans for Post Hospital Care: Home Review of Systems Review of Systems: all other systems reviewed are negative [facility] Medical History Medical History Hypertension (Chronic) Rheumatoid arthritis (Chronic) Throat cancer (Chronic) Surgical History Surgical History H/O arthroscopic knee surgery (Acute) Hx of appendectomy (Acute) Hx of foot surgery (Acute) Hx of hysterectomy (Acute) Hx of knee surgery (Acute) Hx of tonsillectomy (Acute) Family History Family History Other No pertinent family history Social History Social History Substance History: No History of Abuse and Active Abuse Second Hand Smoke Exposure: Yes Smoking Status: Current every day smoker Tobacco Type: Cigarettes How Often Do You Have a Drink Containing Alcohol: 4 or more times a week Recent Travel in [facility] within the Last 8 Weeks: No Recent Out of Country Travel within the Last 8 Weeks: No Immunization History Tetanus Immunization: Unsure Medications and Allergies Allergies Allergy/AdvReac Type Severity Reaction Status Date / Time lisinopril Allergy Severe Anaphylaxis Verified 09/21/18 07:24 codeine Allergy Mild NAUSEA Verified 09/21/18 07:24 tramadol Allergy Unknown Nausea/Vomi Verified 09/21/18 07:24 ting Home Medications Medication Instructions Recorded Confirmed Type omeprazole 20 mg PO DAILY 07/27/18 09/21/18 History B Complex 1 tab PO DAILY 09/21/18 09/21/18 History Probiotic 1 tab PO DAILY 09/21/18 09/21/18 History Vitamin B-12 500 mg PO DAILY 09/21/18 09/21/18 History Vitamin C 500 mg PO DAILY 09/21/18 09/21/18 History amlodipine 10 mg PO DAILY 09/21/18 09/21/18 History iron 28 mg PO DAILY 09/21/18 09/21/18 History magnesium 250 mg PO DAILY 09/21/18 09/21/18 History potassium 550 mg PO DAILY 09/21/18 09/21/18 History Active Medications: Active Medications Acetaminophen (Tylenol) 650 mg PO Q4H PRN PRN Reason: Temp > 100.4 Al Hydroxide/Mg Hydroxide (Milk Of Magnesia Liq) 30 ml PO Q12H PRN PRN Reason: Mild Constipation Bisacodyl (Dulcolax Supp) 10 mg RECTAL DAILY PRN PRN Reason: SEVERE CONSITIPATION Sodium Chloride (Ns Inj) 1,000 mls @ 250 mls/hr IV.CONT .Q4H EMELY Last Infusion: 09/21/18 13:00 Dose: 250 mls/hr Potassium Chloride 30 meq/ (Sodium Chloride) 1,015 mls @ 42 mls/hr IV.CONT .Q24H [facility] Last Infusion: 09/21/18 13:00 Dose: 42 mls/hr Lidocaine HCl (Xylocaine 2% Viscous) 15 ml SWISH-SPIT Q4H PRN PRN Reason: ORAL SORE Metoclopramide HCl (Reglan Inj) 5 mg IV.PUSH Q8H PRN; Protocol PRN Reason: NAUSEA Ondansetron HCl (Zofran Inj) 4 mg IV.PUSH Q6H PRN PRN Reason: NAUSEA OR VOMITING Senna/Docusate Sodium (Marly-Colace) 1 tab PO BID [facility] Sennosides (Senokot) 17.2 mg PO Q12H PRN PRN Reason: Moderate Constipation Sodium Chloride (Ns Flush) 2 ml IV.FLUSH BID EMELY Sodium Chloride (Ns Flush) 2 ml IV.FLUSH PRN PRN PRN Reason: FLUSH AFTER USING IV ACCESS Physical Exam Vital signs: Last Vital Signs Temp 97.8 F 09/21/18 12:40 Pulse 65 09/21/18 12:40 Resp 20 09/21/18 12:40 BP 137/88 09/21/18 12:40 Pulse Ox 99 09/21/18 12:40 Intake & Output 09/19/18 09/20/18 09/21/18 09/22/18 06:59 06:59 06:59 06:59 Intake Total 1194 / 1194 Balance 1194 / 1194 Weight 50 kg general: No acute distress, conversational. Cachectic HEENT: EOMI, PERRLA, healing oral ulcer on left pupil mucosa, poor dentition Cardiovascular: S1/S2 Respiratory: Clear to auscultation anteriorly and posteriorly. No wheezing, rales, or rhonchi Gastrointestinal: Soft, nontender, nondistended Extremity: 2+ right upper extremity radial pulse. No lower extremity edema Results Labs CBC & Chem 7: 09/21/18 07:50 09/21/18 17:45 Caprini VTE Risk Assessment Caprini VTE Risk Assessment: Moderate/High Risk (score >= 2) Caprini Risk Assessment Model: Point Value = 1 Point Value = 2 Point Value = 3 Point Value = 5 Age 41-60 Minor surgery BMI > 25 kg/m2 Swollen legs Varicose veins or History of unexplained or recurrent spontaneous Oral contraceptives or hormone replacement Sepsis (< 1 month) Serious lung disease, including pneumonia (< 1 month) Abnormal pulmonary function Acute myocardial infarction Congestive heart failure (< 1 month) History of inflammatory bowel disease Medical patient at bed rest Age 61-74 Arthroscopic surgery Major open surgery (> 45 min) Laparoscopic surgery (> 45 min) Malignancy Confined to bed (> 72 hours) Immobilizing plaster cast Central venous access Age >= 75 History of VTE Family history of VTE Factor V Leiden Prothrombin [id number] Lupus anticoagulant Anticardiolipin antibodies Elevated serum homocysteine Heparin-induced thrombocytopenia Other congenital or acquired thrombophilia Stroke (< 1 month) Elective arthroplasty Hip, pelvis, or leg fracture Acute spinal cord injury (< 1 month) Prophylaxis Regimen: Total Risk Factor Score Risk Level Prophylaxis Regimen 0-1 Low Early ambulation 2 Moderate Order ONE of the following: *Sequential Compression Device (SCD) *Heparin 5000 units SQ BID 3-4 Higher Order ONE of the following medications: *Heparin 5000 units SQ TID *Enoxaparin/Lovenox 40 mg SQ daily (WT < 150 kg, CrCl > 30 mL/min) *Enoxaparin/Lovenox 30 mg SQ daily (WT < 150 kg, CrCl > 10-29 mL/min) *Enoxaparin/Lovenox 30 mg SQ BID (WT < 150 kg, CrCl > 30 mL/min) AND/OR *Sequential Compression Device (SCD) 5 or more Highest Order ONE of the following medications: *Heparin 5000 units SQ TID (Preferred with Epidurals) *Enoxaparin/Lovenox 40 mg SQ daily (WT < 150 kg, CrCl > 30 mL/min) *Enoxaparin/Lovenox 30 mg SQ daily (WT < 150 kg, CrCl > 10-29 mL/min) *Enoxaparin/Lovenox 30 mg SQ BID (WT < 150 kg, CrCl > 30 mL/min) AND *Sequential Compression Device (SCD) Assessment and Plan Plan Oncology: Throat cancer Suspect ultralight abnormalities are multifactorial from previous treatments as well as reduced p.o. intake and episode of diarrhea. Supplement calcium Supplement potassium Repeat chemistry levels Patient endorsed symptoms of dizziness. Orthostatics x1 and continue IV fluid hydration Maintain patient on telemetry monitoring Magic mouthwash/viscous lidocaine swish and spit Physical therapy Dietary consultation. Suspect patient may have severe protein calorie malnutrition Patient will need to follow-up with oncology once stabilized and discharged. CODE STATUS full code DVT prophylaxis Disposition: MedSurg Diet: Liquid diet advance as tolerated
[2018-09-21 17:22] LABS: Bilirubin,Urine Negative (Negative); Clarity,Urine Clear (Clear); Color,Urine Yellow (Yellw/Straw); Glucose,Urine (UA) Negative (Negative); Leukocyte Esterase,Urine Small (Negative); Nitrite,Urine Negative (Negative); PH,Urine 6.5 (5.0-8.5); Urobilinogen,Urine 0.2 mg/dL (Less than 2)
[2018-09-21 17:28] LABS: Bacteria,Urine Few /hpf; RBC,Urine 0-3 /hpf (0-3); Squamous Epithelial Cell,Urine 0-5 /hpf (0-5)
[2018-09-21] MEDS: Nystatin/Diphenhydramine/Lidocaine Mouthwash (Adult) 120 ML Botttle SWISH-SWAL SCH ×2 (17:39→20:54)
[2018-09-21 18:22] LABS: Anion Gap 18 meq/L (5-15); Blood Urea Nitrogen 3 mg/dL (7-18); Carbon Dioxide 19.8 meq/L (21.0-32.0); Chloride 91 meq/L (98-107); Glomerular Filtration Rate Greater Than 89 mL/min (>89); Glucose,Random 76 mg/dL (74-106); Sodium 129 meq/L (136-145)
[2018-09-21 18:25] LABS: Potassium 2.6 meq/L (3.5-5.1)
[2018-09-21 18:38] LABS: Albumin 2.1 g/dL (3.4-5.0)
[2018-09-21 18:40] LABS: Calcium-Albumin Corrected 6.5 mg/dL (8.5-10.1)
[2018-09-21] MEDS ORDERED: Calcium Gluconate Inj 2 GM in Sodium Chlor 0.9% Inj 100 ML IV.SIG ONE (20:00)
[2018-09-21] MEDS ORDERED: Potassium Bicarbonate 25 MEQ Effervescent Tablet PO ONE (20:00)
--- NOTE | 2018-09-21 20:14 | ECG ---
Date Performed: 09/21/2018 Time Performed: 10:40:55 PTAGE: 58 years EKG: Sinus rhythm WITH SHORT MA INTERVAL MODERATE ST DEPRESSION ABNORMAL ECG PREVIOUS TRACING : 08/26/2018 11.06 Since the previous tracing, no significant change noted DOCTOR: Joelle Leblanc Interpretating Date/Time 09/21/2018 20:04:19
[2018-09-21] MEDS: Senna/Docusate Sodium 8.6/50 MG Tablet PO SCH (20:54)
[2018-09-22] MEDS: Sod Chloride 0.9% Inj 1,000 ML IV.CONT SCH ×2 (00:23→04:25)
[2018-09-22] MEDS: POTASSIUM CHLORIDE IV.CONT SCH ×2 (02:50→10:00)
[2018-09-22] MEDS: SODIUM CHLORIDE 0.45% IV.CONT SCH ×2 (02:50→10:00)
[2018-09-22 05:28] LABS: Hematocrit 29.5 % (35.0-46.0); Hemoglobin 9.9 gm/dL (11.6-15.3); Mean Corpuscular HGB Conc 33.5 % (32.0-36.0); Mean Corpuscular Hemoglobin 32.6 pg (27.0-34.0); Mean Corpuscular Volume 97.5 fL (80.0-100.0); Mean Platelet Volume 7.9 fL (7.0-11.0); Platelet Count 265 th/mm3 (150-450); Red Blood Count 3.03 mil/mm3 (4.00-5.30); Red Cell Distribution Width 15.8 % (11.6-17.2); White Blood Count 6.1 th/mm3 (4.0-11.0)
[2018-09-22 05:53] LABS: Albumin 2.1 g/dL (3.4-5.0)
[2018-09-22 05:59] LABS: Calcium-Albumin Corrected 6.5 mg/dL (8.5-10.1)
[2018-09-22] MEDS: Mag Sulf 1 gm/100 ml Premix 100 ML IV.SIG SCH ×2 (07:03→08:26)
[2018-09-22] MEDS ORDERED: Calcium Gluconate Inj 2 GM in Dextrose 5% in Water Inj 100 ML IV.SIG ONE ×4 (07:30→22:00)
[2018-09-22] MEDS: amLODIPine 10 MG Tablet PO SCH (08:26)
[2018-09-22] MEDS: Lactobacillus Acidophilus/L. Spores Tablet PO SCH (08:26)
[2018-09-22] MEDS: Ascorbic Acid 500 MG Tablet PO SCH (08:27)
[2018-09-22] MEDS: Ferrous Sulfate 325 MG Tablet PO SCH (08:27)
[2018-09-22] MEDS: Vitamin B Complex/Vitamin C Tablet PO SCH (08:52)
[2018-09-22] MEDS: Nystatin/Diphenhydramine/Lidocaine Mouthwash (Adult) 120 ML Botttle SWISH-SWAL SCH ×4 (09:35→20:16)
[2018-09-22] MEDS: Pantoprazole Sodium 20 MG DR Tablet PO SCH (09:35)
[2018-09-22] MEDS: Potassium Chlor 20 mEq Premix 20 MEQ/100 ML PIGGYBACK IV.SIG SCH ×4 (09:35→17:03)
[2018-09-22] MEDS: Senna/Docusate Sodium 8.6/50 MG Tablet PO SCH ×2 (10:22→20:16)
[2018-09-22] MEDS: Magnesium Oxide 400 MG Tablet PO SCH (12:28)
--- NOTE | 2018-09-22 19:26 | P.PNIM ---
Subjective Interval history: 58yo f admitted with severe dehydration, nv diarrhea, history of esophageal ca on chemo pt seen and examined doign a little better no dysphagia, wants to eat, no sob, no cp, no palpitations Physical Exam Vital signs: Last Vital Signs Temp 98.1 F 09/22/18 16:00 Pulse 103 H 09/22/18 16:00 Resp 22 09/22/18 16:00 BP 119/92 H 09/22/18 16:00 Pulse Ox 97 09/22/18 16:00 Intake & Output 09/20/18 09/21/18 09/22/18 09/23/18 06:59 06:59 06:59 06:59 Intake Total 7614 / 7614 500 / 500 Balance 7614 / 7614 500 / 500 Weight 48 kg thin chronically ill aaox3 pale nad heart s1s2 reg tachy, port in place lungs clear no wrr abd soft nondt pos bs ext no edema no calf tenderness Results Labs CBC & Chem 7: 09/22/18 04:50 09/21/18 17:45 Assessment and Plan Plan CRITICAL HYPOKALEMIA and ELECTROLYTE ABNORMALITY due to loss w diarrhea and decreased intake, monitor for refeeding syndrome, SEVERE DEHYDRATION continue ivf ESOPHAGEAL CA on chemo w likely mucositis DIARRHEA prob second to chemo, SEVERE PROTEIN TUSHAR MALNUTRITION and undeweight status w BMI 17 - nutrition consult start diet as tolerated Progress Note: Quality VTE Deep Vein Thrombosis/Pulmonary Embolism Present on Admission: No
[2018-09-22 20:52] LABS: Albumin 2.2 g/dL (3.4-5.0); Anion Gap 10 meq/L (5-15); Blood Urea Nitrogen 1 mg/dL (7-18); Carbon Dioxide 23.5 meq/L (21.0-32.0); Chloride 94 meq/L (98-107); Glomerular Filtration Rate Greater Than 89 mL/min (>89); Glucose,Random 99 mg/dL (74-106); Phosphorus 1.2 mg/dL (2.5-4.9); Potassium 3.7 meq/L (3.5-5.1); Sodium 127 meq/L (136-145)
[2018-09-22 20:58] LABS: Calcium 5.9 mg/dL (8.5-10.1)
[2018-09-22] MEDS ORDERED: Potassium Phosphate 500 MG Soluble Tablet PO ONE (22:00)
[2018-09-23] MEDS: POTASSIUM CHLORIDE IV.CONT SCH ×3 (04:22→14:20)
[2018-09-23] MEDS: SODIUM CHLORIDE 0.45% IV.CONT SCH ×3 (04:22→14:20)
[2018-09-23 06:09] LABS: Chloride 91 meq/L (98-107); Potassium 3.5 meq/L (3.5-5.1); Sodium 126 meq/L (136-145)
[2018-09-23 06:20] LABS: Albumin 2.3 g/dL (3.4-5.0); Anion Gap 9 meq/L (5-15); Carbon Dioxide 26.3 meq/L (21.0-32.0); Glomerular Filtration Rate Greater Than 89 mL/min (>89); Glucose,Random 84 mg/dL (74-106); Magnesium 0.4 mg/dL (1.5-2.5); Phosphorus 1.7 mg/dL (2.5-4.9)
[2018-09-23 06:25] LABS: Calcium-Albumin Corrected 7.5 mg/dL (8.5-10.1)
[2018-09-23 06:27] LABS: Calcium 6.1 mg/dL (8.5-10.1)
[2018-09-23] MEDS ORDERED: Potassium Phos/Sodium Phos 250 MG Tablet PO ONE (08:47)
[2018-09-23] MEDS ORDERED: Magnesium Sulfate Inj 2 GM in Sodium Chlor 0.9% Inj 96 ML IV.SIG ONE (08:47)
[2018-09-23] MEDS: amLODIPine 10 MG Tablet PO SCH (08:50)
[2018-09-23] MEDS: Ferrous Sulfate 325 MG Tablet PO SCH (08:51)
[2018-09-23] MEDS: Ascorbic Acid 500 MG Tablet PO SCH (08:51)
[2018-09-23] MEDS: Pantoprazole Sodium 20 MG DR Tablet PO SCH (08:51)
[2018-09-23] MEDS: Senna/Docusate Sodium 8.6/50 MG Tablet PO SCH (08:51)
[2018-09-23] MEDS: Lactobacillus Acidophilus/L. Spores Tablet PO SCH (08:51)
[2018-09-23] MEDS: Nystatin/Diphenhydramine/Lidocaine Mouthwash (Adult) 120 ML Botttle SWISH-SWAL SCH ×2 (08:53→13:17)
[2018-09-23] MEDS: Vitamin B Complex/Vitamin C Tablet PO SCH (10:11)
[2018-09-23] MEDS: Magnesium Oxide 400 MG Tablet PO SCH (10:11)
[2018-09-23] MEDS: Mag Sulf 1 gm/100 ml Premix 100 ML IV.SIG SCH ×2 (10:12→11:24)
--- NOTE | 2018-09-23 12:30 | P.DIET ---
Nutritional Evaluation Type of nutrition evaluation: initial Nutrition consult regarding: Diet Evaluation [place] [facility] [place] [facility] [place]nutrition; severe protein calorie malnutrition Subjective Oral Diet Tolerance Assessment Indicates: Sore mouth Subjective Comments: Pt visited before lunch today and reports she tolerated breakfast and is looking forward to lunch. Pt would like to receive [employer] Essentials and is receptive to receiving Beneprotein powder. Objective - Diagnosis hypokalemia, hypocalcemia, anorexia, depression - Objective % IBW: 81 Body Weight Used for Calculations: Actual (48 kg) Energy Needs - Lower Range (kCal/kg): 35 Energy Needs - Upper Range (kCal/kg): 40 Lower Limit kCal/kg (kCals): 1,680 Upper Limit kCal/kg (kCals): 1,920 Lower Limit Protein Factor (Grams per Kg): 1.2 Upper Limit Protein Factor (Grams per Kg): 1.5 Lower Protein Needs (Protein): 58 Upper Protein Needs (Protein): 72 Dietitian Reviewed in Medical Record: Current diet, Curent medications, Intake & Output, Labs, Medical history Diet Order: Regular Oral Diet Intake Amount: Fair 50-75% Objective Comments: PMH includes: HTN, Rheumatoid Arthritis, Throat Cancer s/p chemo therapy and radiation Meds include: Magic mouthwash, Norvasc, Vit C, Vit B12, Lactinex, Reglan, Protonix LBM 09/22/18 Assessment Assessment: Pt is at high nutrition risk r/t anorexia, poor po intake and recent wt loss w/ low BMI 17.8. Pt is s/p radiation therapy and has blisters in her mouth w/ impaired po intake. Pt is now tolerating small amounts of po intake w/soft foods and liquids. Send Clifford Essentials TID(w/8-oz 2% Milk = 230 kcal and 13g protein per serving). Send Beneprotein packets x 3 w/meals(= 25 kcal and 6g protein per packet). Labs reviewed. Dietitian following Recommendations: 1. Send Clifford Essentials TID 2. Send Beneprotein packets x 3 w/meals 3. Dietitian following Dietitian to Monitor: Lab values, Electrolytes, Supplement acceptance, Intake & Output, Diet tolerance, Weight change, PO Intake, Medical course
[2018-09-23] MEDS ORDERED: Heparin Central Flush 100 UNIT/ML 5 ML Vial IV.FLUSH PRN ×2 (12:53)
[2018-09-23 13:07] LABS: Chloride 89 meq/L (98-107); Potassium 3.3 meq/L (3.5-5.1); Sodium 126 meq/L (136-145)
[2018-09-23 13:18] LABS: Anion Gap 12 meq/L (5-15); Blood Urea Nitrogen 1 mg/dL (7-18); Calcium 6.1 mg/dL (8.5-10.1); Carbon Dioxide 24.9 meq/L (21.0-32.0); Glomerular Filtration Rate Greater Than 89 mL/min (>89); Glucose,Random 137 mg/dL (74-106); Magnesium 1.7 mg/dL (1.5-2.5)
[2018-09-23 13:40] LABS: Albumin 2.2 g/dL (3.4-5.0); Calcium-Albumin Corrected 7.5 mg/dL (8.5-10.1)
[2018-09-23] MEDS ORDERED: Magnesium Oxide 400 MG Tablet PO ONE (14:50)
--- NOTE | 2018-09-23 15:40 | P.DS ---
DS: Providers Date of admission: 09/21/18 11:15 Primary care physician: oLgan Mejía DS: Summary 58-year-old female admitted with severe dehydration nausea vomiting diarrhea area she is status post chemoradiation for esophageal cancer. Patient had critical electrolyte abnormalities with severe hyponatremia, hypokalemia, hypomagnesemia, and hypocalcemia with hypophosphatemia. Patient was profoundly malnourished and having severe dysphagia and oral mucositis symptoms. Patient was treated with nystatin, Magic mouthwash, and aggressive IV fluid and electrolyte replacement. Patient had slow improvement, her symptoms she was slowly tolerating p.o. and electrolytes improved, I had a lengthy discussion with the patient regarding her p.o. intake and electrolyte replacement and close follow-up. Patient was clinically improved and eager to be discharged home,, diet medication activity follow-up instructions provided Admitting diagnosis: Critical hypokalemia Discharge diagnosis: Critical hypokalemia, hypomagnesemia, hyponatremia chronic, hypophosphatemia Severe dehydration Esophageal cancer status post chemoradiation Diarrhea Severe protein calorie malnutrition Underweight status with BMI 17 hypertension Thrush Time Spent with Patient Total time spent providing and/or coordinating discharge services: Quality: VTE Deep Vein Thrombosis/Pulmonary Embolism Present on Admission: No Exam Narrative Exam Narrative: Chronically ill-appearing emaciated 58-year-old white female Awake alert oriented no acute distress pleasant Heart S1-S2 regular without arrhythmia Lungs clear bilateral no wheeze no rhonchi Abdomen soft nondistended positive bowel sounds Extremities no clubbing cyanosis no edema, diffuse atrophy muscle wasting Results Labs on day of discharge: Labs from last 24 hours 09/23/18 09/23/18 09/22/18 12:50 05:55 20:20 Sodium 126 L 126 L 127 L Potassium 3.3 L 3.5 3.7 D Chloride 89 L 91 L 94 L Carbon Dioxide 24.9 26.3 23.5 Anion Gap 12 9 10 BUN 1 L Less than 1 L 1 L Creatinine 0.49 L 0.38 L 0.39 L Estimated GFR Greater than 89 Greater than 89 Greater than 89 Random Glucose 137 H 84 99 Calcium 6.1 L* 6.1 L* 5.9 L* D Calcium Adj for Albumin 7.5 L 7.5 L D Ionized Calcium Phosphorus 1.7 L 1.2 L Magnesium 1.7 D 0.4 L Albumin 2.2 L 2.3 L 2.2 L 12/03/18 08:10 Sodium Potassium Chloride Carbon Dioxide Anion Gap BUN Creatinine Estimated GFR Random Glucose Calcium Calcium Adj for Albumin Ionized Calcium 2.8 L* Phosphorus Magnesium Albumin Discharge Plan Discharge Disposition Patient Disposition: 01 Discharge Home Discharge Condition Condition: Stable Discharge Order Discharge Orders: Discharge Order (Routine); Ordered 09/23/18 Ordered By: Alix Meyer Physicians Team ED Provider: Damian Briones Primary Care Provider: Logan Mejía Attending Provider: Alix Meyer Rxs /Orders / Referrals /Forms Prescriptions: New Nyst/Diph/Lido Liq [Magic Mouthwash Adult Liq] 10 ml SWISH-SWAL QID Qty: 250 RF: 0 Continue omeprazole 10 mg Capsule,Delayed Release(Dr/Ec) 20 mg PO DAILY RF: 0 B Complex 1 tab PO DAILY RF: 0 Probiotic 1 tab PO DAILY RF: 0 Vitamin B-12 500 mg PO DAILY RF: 0 Vitamin C 500 mg PO DAILY RF: 0 amlodipine 10 mg PO DAILY RF: 0 iron 28 mg PO DAILY RF: 0 Changed magnesium 250 mg PO BID Qty: 60 RF: 0 potassium cloride 550 mg PO BID Qty: 60 RF: 0 Referrals: Logan Mejía D.O. [Primary Care Provider] - See Instructions ( Please call the physician's office to book the appointment to be seen within [2 days]. Goals to Promote Your Health: To prevent worsening of your condition To maintain your health at the optimal level Directions to Meet Your Goals: Take your medications as prescribed Follow your dietary instruction Follow activity as directed Keep your appointments as scheduled Take your immunizations and boosters as scheduled If your symptoms worsen call your PCP If no PCP go to Urgent Care or Emergency Room Smoking is dangerous to your health. Avoid second hand smoke. You may reach the 24-hour crisis hotline for domestic abuse at .) Discharge Instructions Patient Printed Instructions: Malnutrition (GEN), Hypokalemia (GEN), Hypocalcemia (GEN), Hypomagnesemia (GEN) Post Discharge Care Plan Care Plan Goals: Your Health Problems: Electrolytes imbalance Goals to Promote Your Health: * To prevent worsening of your condition * To maintain your health at the optimal level Directions to Meet Your Goals: * Take your medications as prescribed * Follow your dietary instruction * Follow activity as directed * Keep your appointments as scheduled * Take your immunizations and boosters as scheduled * If your symptoms worsen call your PCP * If no PCP go to Urgent Care or Emergency Room Smoking is dangerous to your health. Avoid second hand smoke. You may reach the 24-hour crisis hotline for domestic abuse at . Status ED Status: Left Department Discharge Information Discharge Date/Time: 09/23/18 16:00
== END 2018-09-23 16:00 | disposition home or self-care (01) ==
LOC: PHED 06:47 → PHEDA 11:15 → PH3 12:00
PROVIDERS: ADMIT Internal Medicine; ATTEND Internal Medicine

== ENCOUNTER 2018-12-08 13:30 | Inpatient (IN) ==
[2018-12-08 14:42] LABS: Baso % (Auto) 0.8 % (0.0-2.0); Eos # (Auto) 0.1 th/mm3 (0.0-0.4); Eos % (Auto) 1.5 % (0.0-4.0); Hematocrit 29.8 % (35.0-46.0); Lymph # (Auto) 0.6 th/mm3 (1.0-4.8); Lymph % (Auto) 15.8 % (9.0-44.0); Mean Corpuscular HGB Conc 33.5 % (32.0-36.0); Mean Corpuscular Volume 95.4 fL (80.0-100.0); Mean Platelet Volume 7.1 fL (7.0-11.0); Mono # (Auto) 0.4 th/mm3 (0.0-0.9); Mono % (Auto) 9.7 % (0.0-8.0); Neut # (Auto) 2.6 th/mm3 (1.8-7.7); Neut % (Auto) 72.2 % (16.0-70.0); Platelet Count 310 th/mm3 (150-450); Red Blood Count 3.13 mil/mm3 (4.00-5.30); Red Cell Distribution Width 14.4 % (11.6-17.2); White Blood Count 3.7 th/mm3 (4.0-11.0)
[2018-12-08] MEDS ORDERED: Sod Chloride 0.9% Inj 1,000 ML IV.SIG SCH (14:45)
--- NOTE | 2018-12-08 14:47 | ED ---
HPI General Chief complaint: Recheck/Abnormal Lab/Rx Stated complaint: Low Sodium Levels/Weakness Time Seen by Provider: 12/08/18 14:09 Source: patient and family History of Present Illness HPI narrative: 58-year-old female with a past medical history of throat cancer, hypothyroidism, multiple electrolyte abnormalities in the past presents to the ER complaining of generalized weakness and a critically low sodium as an outpatient from lab drawn 4 days ago. Patient has been under radiation therapy on the neck complicated with multiple mouth sores and dry mouth which resulted in decreased appetite. Patient has also been noncompliant on sodium tablets 3 times daily that she only takes once daily now. Patient denies shortness of breath, chest pain, abdominal pain, nausea, vomiting, fever or chills. Related Data Home Medications Medication Instructions Recorded Confirmed omeprazole 20 mg PO DAILY 07/27/18 12/08/18 levothyroxine See Label Instructions .ROUTE 11/14/18 11/14/18 .COMPLEX Previous Rx's Medication Instructions Recorded hydrocodone-acetaminophen [Plains] 1 tab PO Q6H PRN #10 tab 11/13/18 amlodipine [Norvasc] 5 mg PO DAILY #30 tab 11/23/18 hydrocodone-acetaminophen 1 tab PO Q4H PRN #18 tab 11/23/18 levothyroxine [Synthroid] 50 mcg PO DAILY@0600 #30 tab 11/23/18 magnesium oxide 400 mg PO BID #14 tab 11/23/18 multivitamin with folic acid 1 tab PO DAILY #30 tab 11/23/18 [Thera] thiamine HCl (vitamin B1) 100 mg PO DAILY #30 tab 11/23/18 Allergies Allergy/AdvReac Type Severity Reaction Status Date / Time lisinopril Allergy Severe Anaphylaxis Verified 11/14/18 09:17 codeine Allergy Mild NAUSEA Verified 11/14/18 09:17 tramadol Allergy Unknown Nausea/Vomi Verified 11/14/18 09:17 ting Review of Systems ROS: all other systems reviewed are negative Constitutional Reports weakness Eyes Denies change in vision ENT Reports change in voice, Reports hoarseness, Reports mouth lesions, Reports neck mass and Reports sore throat Cardiovascular Denies chest pain Respiratory Denies dyspnea Gastrointestinal Denies abdominal pain Genitourinary Denies difficulty voiding Musculoskeletal Denies myalgias Integumentary/Breasts Denies rash Neurologic Denies headache(s) Psychiatric Denies depression Endocrine Denies polyuria Hematologic/Lymphatic Denies easy bruising [facility] Medical History Medical History Pneumothorax (Acute) Hypertension (Chronic) Rheumatoid arthritis (Chronic) Throat cancer (Chronic) Surgical History Surgical History H/O arthroscopic knee surgery (Acute) Hx of appendectomy (Acute) Hx of foot surgery (Acute) Hx of hysterectomy (Acute) Hx of knee surgery (Acute) Hx of tonsillectomy (Acute) Family History Family History Father Seizures Mother Seizures Other No pertinent family history Social History Social History Substance History: No History of Abuse Second Hand Smoke Exposure: Yes Smoking Status: Current every day smoker Tobacco Type: Cigarettes How Often Do You Have a Drink Containing Alcohol: 2 to 3 times a week Recent Travel in [facility] within the Last 8 Weeks: No Recent Out of Country Travel within the Last 8 Weeks: No Immunization History Tetanus Immunization: <5 Years Exam Narrative Exam Narrative: GENERAL: Patient is alert and oriented -3 SKIN: Focused skin assessment warm/dry. HEAD: Atraumatic. Normocephalic. EYES: Pupils equal and round. No scleral icterus. No injection or drainage. ENT: No nasal bleeding or discharge. Mucous membranes pink and dry NECK: Trachea midline. No JVD. CARDIOVASCULAR: Regular rate and rhythm. No murmur appreciated. RESPIRATORY: No accessory muscle use. Clear to auscultation. Breath sounds equal bilaterally. GASTROINTESTINAL: Abdomen soft, non-tender, nondistended. Hepatic and splenic margins not palpable. MUSCULOSKELETAL: No obvious deformities. No clubbing. No cyanosis. No edema. NEUROLOGICAL: Awake and alert. No obvious cranial nerve deficits. Motor grossly within normal limits. Normal speech. PSYCHIATRIC: Appropriate mood and affect; insight and judgment normal. Course Initial Documented Vital Signs Temperature 98.1 F 12/08/18 13:57 Pulse Rate 78 12/08/18 13:57 Blood Pressure 134/83 12/08/18 13:57 Last Documented Vital Signs Temperature 97.5 F L 12/08/18 17:28 Pulse Rate 78 12/08/18 17:28 Respiratory Rate 21 12/08/18 17:28 Blood Pressure 109/67 12/08/18 17:28 Pulse Oximetry 99 12/08/18 17:28 Medical Decision Making MDM Narrative Medical Screen Exam Complete: Yes Emergency Medical Condition: Yes Lab Data Result diagrams: 12/08/18 14:34 12/08/18 14:34 Lab Results 12/08/18 12/08/18 12/08/18 Range/Units 14:34 14:34 14:34 CBC w Diff Slide review pending WBC 3.7 L (4.0-11.0) th/mm3 RBC 3.13 L (4.00-5.30) mil/mm3 Hgb 10.0 L (11.6-15.3) gm/dL Hct 29.8 L (35.0-46.0) % MCV 95.4 (80.0-100.0) fL MCH 32.0 (27.0-34.0) pg MCHC 33.5 (32.0-36.0) % RDW 14.4 (11.6-17.2) % Plt Count 310 (150-450) th/mm3 MPV 7.1 (7.0-11.0) fL Neut % (Auto) 72.2 H (16.0-70.0) % Lymph % (Auto) 15.8 (9.0-44.0) % Lucas % (Auto) 9.7 H (0.0-8.0) % Eos % (Auto) 1.5 (0.0-4.0) % Baso % (Auto) 0.8 (0.0-2.0) % Neut # (Auto) 2.6 (1.8-7.7) th/mm3 Lymph # (Auto) 0.6 L (1.0-4.8) th/mm3 Lucas # (Auto) 0.4 (0.0-0.9) th/mm3 Eos # (Auto) 0.1 (0.0-0.4) th/mm3 Baso # (Auto) 0.0 (0.0-0.2) th/mm3 WBC Differential . Diff Scan Auto diff confirmed Differential Comment . Platelet Estimate Normal (Normal) Platelet Morphology Normal (Normal) Sodium 124 L* (136-145) meq/L Potassium 2.9 L* (3.5-5.1) meq/L Chloride 86 L (98-107) meq/L Carbon Dioxide 29.0 (21.0-32.0) meq/L Anion Gap 9 (5-15) meq/L BUN 4 L (7-18) mg/dL Creatinine 0.49 L (0.50-1.00) mg/dL Estimated GFR Greater than 89 (>89) mL/min Random Glucose 84 (74-106) mg/dL Calcium 8.2 L (8.5-10.1) mg/dL Magnesium 1.1 L (1.5-2.5) mg/dL Total Bilirubin 0.3 (0.2-1.0) mg/dL AST 17 (15-37) U/L ALT 11 (10-53) U/L Alkaline Phosphatase 78 (45-117) U/L Troponin I Less than 0.02 L (0.02-0.05) ng/mL Total Protein 6.1 L (6.4-8.2) g/dL Albumin 3.1 L (3.4-5.0) g/dL TSH (0.358-3.740) uIU/mL Urine Color (Yellw/Straw) Urine Clarity (Clear) Urine pH (5.0-8.5) Ur Specific [place] (1.002-1.035) Urine Protein (Neg-Trace) mg/dL Urine Glucose (UA) (Negative) mg/dL Urine Ketones (Negative) mg/dL Urine Occult Blood (Negative) Urine Nitrate (Negative) Urine Bilirubin (Negative) Urine Urobilinogen (Less than 2) mg/dL Ur Leukocyte Esterase (Negative) Urine WBC (0-5) /hpf Micro UA Comment Ur Microscopic Review Urine Culture Comments Serum Alcohol (0-5) mg/dL 12/08/18 12/08/18 Range/Units 14:34 15:58 CBC w Diff WBC (4.0-11.0) th/mm3 RBC (4.00-5.30) mil/mm3 Hgb (11.6-15.3) gm/dL Hct (35.0-46.0) % MCV (80.0-100.0) fL MCH (27.0-34.0) pg MCHC (32.0-36.0) % RDW (11.6-17.2) % Plt Count (150-450) th/mm3 MPV (7.0-11.0) fL Neut % (Auto) (16.0-70.0) % Lymph % (Auto) (9.0-44.0) % Lucas % (Auto) (0.0-8.0) % Eos % (Auto) (0.0-4.0) % Baso % (Auto) (0.0-2.0) % Neut # (Auto) (1.8-7.7) th/mm3 Lymph # (Auto) (1.0-4.8) th/mm3 Lucas # (Auto) (0.0-0.9) th/mm3 Eos # (Auto) (0.0-0.4) th/mm3 Baso # (Auto) (0.0-0.2) th/mm3 WBC Differential Diff Scan Differential Comment Platelet Estimate (Normal) Platelet Morphology (Normal) Sodium (136-145) meq/L Potassium (3.5-5.1) meq/L Chloride (98-107) meq/L Carbon Dioxide (21.0-32.0) meq/L Anion Gap (5-15) meq/L BUN (7-18) mg/dL Creatinine (0.50-1.00) mg/dL Estimated GFR (>89) mL/min Random Glucose (74-106) mg/dL Calcium (8.5-10.1) mg/dL Magnesium (1.5-2.5) mg/dL Total Bilirubin (0.2-1.0) mg/dL AST (15-37) U/L ALT (10-53) U/L Alkaline Phosphatase (45-117) U/L Troponin I (0.02-0.05) ng/mL Total Protein (6.4-8.2) g/dL Albumin (3.4-5.0) g/dL TSH 3.210 (0.358-3.740) uIU/mL Urine Color Yellow (Yellw/Straw) Urine Clarity Clear (Clear) Urine pH 7.5 (5.0-8.5) Ur Specific [place] Less/equal 1.005 (1.002-1.035) Urine Protein Negative (Neg-Trace) mg/dL Urine Glucose (UA) Negative (Negative) mg/dL Urine Ketones Negative (Negative) mg/dL Urine Occult Blood Negative (Negative) Urine Nitrate Negative (Negative) Urine Bilirubin Negative (Negative) Urine Urobilinogen 0.2 (Less than 2) mg/dL Ur Leukocyte Esterase Trace H (Negative) Urine WBC 0-5 (0-5) /hpf Micro UA Comment Culture not ind Ur Microscopic Review Microscopic reviewed Urine Culture Comments Culture not ind Serum Alcohol Less than 3 (0-5) mg/dL Discharge Plan Discharge Disposition Patient Disposition: ED Admit(ED Internal Use Only) Discharge Condition Condition: Fair Discharge Order Discharge Orders: ED Use Only Admit Order (Routine); Ordered 12/08/18 Ordered By: Tor Maldonado Discharge Details Discharge Comment: Case has been discussed with the admitting physician who accepted admission to the hospital Diagnosis: Acute hypokalemia, Acute hyponatremia, General weakness Physicians Team ED Provider: Tor Maldonado Primary Care Provider: Logan Mejía Attending Provider: Jem Phillips Status ED Status: Left Department Discharge Information Discharge Date/Time: 12/08/18 16:50
[2018-12-08 15:04] LABS: Alanine Aminotransferase 11 U/L (10-53); Albumin 3.1 g/dL (3.4-5.0); Alkaline Phosphatase 78 U/L (45-117); Anion Gap 9 meq/L (5-15); Aspartate Aminotransferase 17 U/L (15-37); Blood Urea Nitrogen 4 mg/dL (7-18); Calcium 8.2 mg/dL (8.5-10.1); Chloride 86 meq/L (98-107); Glomerular Filtration Rate Greater Than 89 mL/min (>89); Glucose,Random 84 mg/dL (74-106); Total Protein 6.1 g/dL (6.4-8.2)
[2018-12-08 15:06] LABS: Potassium 2.9 meq/L (3.5-5.1); Sodium 124 meq/L (136-145)
[2018-12-08 15:22] LABS: Platelet Estimate Normal (Normal); Platelet Morphology Normal (Normal)
[2018-12-08 16:17] LABS: Bilirubin,Urine Negative (Negative); Clarity,Urine Clear (Clear); Color,Urine Yellow (Yellw/Straw); Glucose,Urine (UA) Negative (Negative); Leukocyte Esterase,Urine Trace (Negative); Nitrite,Urine Negative (Negative); PH,Urine 7.5 (5.0-8.5); Specific Gravity,Urine Less/Equal 1.005 (1.002-1.035); Urobilinogen,Urine 0.2 mg/dL (Less than 2)
--- NOTE | 2018-12-08 16:26 | P.HPIM ---
History of Present Illness Primary Care Physician: Logan Mejía Chief Complaint: Electrolyte abnormalities and weakness History of Present Illness: This is a 58-year-old female with a history of alcohol abuse, hypertension, rheumatoid arthritis, neuropathy and h/o of throat cancer completed chemotherapy and radiation therapy who presented to the ED with abnormal labs with electrolyte abnormality and generalized weakness. Patient has been admitted almost monthly since July of last year for similar electrolyte abnormalities said to be secondary to her chronic alcohol use, poor nutrition and malnutrition secondary to throat cancer and chemotherapy. Patient was recently just discharged on November 23, 2018 and since that time patient was actually doing much improved. She was ambulating well, performing activities of daily living, limiting her alcohol use to 1-2 beers per day. She states that this morning she just felt overall weak, with a couple bouts of diarrhea this morning and was notified by her PCP that her electrolytes were low and should be admitted to the hospital for further evaluation. It should be noted that patient has been eating and drinking well although her appetite has been poor. Her has been helping her with her medications, states that the sodium tablets have been prescribed to her for 3 times a day although they have only been taking them once a day due to misunderstanding. Patient also states that she has been drinking quite a bit of fluids secondary to her dry mouth. Patient follows with oncologist, Dr. Meyer, has not seen since August, finished her chemotherapy for throat cancer and last admission her port was actually discontinued as well. Inpatient Certification Inpatient Certification: I certify that the inpatient services were ordered in accordance with Medicare regulations governing the order. This includes certification that hospital inpatient services are reasonable and necessary and in the case of services not specified as inpatient-only under 42 CFR 419.22(n), that they are appropriately provided as inpatient services in accordance to with the 2-midnight benchmark under 43 CFR 412.3(e) Review of Systems Review of Systems: all other systems reviewed are negative [facility] Medical History Medical History Pneumothorax (Acute) Hypertension (Chronic) Rheumatoid arthritis (Chronic) Throat cancer (Chronic) Surgical History Surgical History H/O arthroscopic knee surgery (Acute) Hx of appendectomy (Acute) Hx of foot surgery (Acute) Hx of hysterectomy (Acute) Hx of knee surgery (Acute) Hx of tonsillectomy (Acute) Family History Family History Father Seizures Mother Seizures Other No pertinent family history Social History Social History Substance History: No History of Abuse Second Hand Smoke Exposure: Yes Smoking Status: Current every day smoker Tobacco Type: Cigarettes How Often Do You Have a Drink Containing Alcohol: 2 to 3 times a week Recent Travel in [facility] within the Last 8 Weeks: No Recent Out of Country Travel within the Last 8 Weeks: No Immunization History Tetanus Immunization: <5 Years Medications and Allergies Allergies Allergy/AdvReac Type Severity Reaction Status Date / Time lisinopril Allergy Severe Anaphylaxis Verified 11/14/18 09:17 codeine Allergy Mild NAUSEA Verified 11/14/18 09:17 tramadol Allergy Unknown Nausea/Vomi Verified 11/14/18 09:17 ting Home Medications Medication Instructions Recorded Confirmed Type omeprazole 20 mg PO DAILY 07/27/18 12/08/18 History levothyroxine See Label Instructions .ROUTE 11/14/18 11/14/18 History .COMPLEX Physical Exam Vital signs: Vital Signs 12/08/18 13:57 Temperature 98.1 F Pulse Rate 78 Blood Pressure 134/83 Intake & Output 12/07/18 12/08/18 12/08/18 18:59 06:59 18:59 Weight 44.9 kg Narrative: GENERAL: Well-developed, frail thin appearing female appears well above stated age patient in NAD. SKIN: Warm and dry. No rash. HEAD: Normocephalic. Atraumatic. EYES: Pupils equal and round. No scleral icterus. No injection or drainage. ENT: No nasal bleeding or discharge. Mucous membranes pink and moist. NECK: Supple. Trachea midline. CARDIOVASCULAR: Regular rate and rhythm. S1, S2 noted. No murmur appreciated. RESPIRATORY: No accessory muscle use. Clear to auscultation. Breath sounds equal bilaterally. GASTROINTESTINAL: Abdomen soft, non-tender, nondistended. Normoactive bowel sounds x4. MUSCULOSKELETAL: No obvious deformities. Extremities without clubbing, cyanosis , or edema. NEUROLOGICAL: Awake and alert. No obvious cranial nerve deficits. Motor grossly within normal limits. 5/5 muscle strength in bilateral upper and lower extremities. Normal speech. PSYCHIATRIC: Appropriate mood and affect; insight and judgment normal. Results Labs CBC & Chem 7: 12/08/18 14:34 12/08/18 14:34 Caprini VTE Risk Assessment Caprini VTE Risk Assessment: No/Low Risk (score <= 1) Caprini Risk Assessment Model: Point Value = 1 Point Value = 2 Point Value = 3 Point Value = 5 Age 41-60 Minor surgery BMI > 25 kg/m2 Swollen legs Varicose veins or History of unexplained or recurrent spontaneous Oral contraceptives or hormone replacement Sepsis (< 1 month) Serious lung disease, including pneumonia (< 1 month) Abnormal pulmonary function Acute myocardial infarction Congestive heart failure (< 1 month) History of inflammatory bowel disease Medical patient at bed rest Age 61-74 Arthroscopic surgery Major open surgery (> 45 min) Laparoscopic surgery (> 45 min) Malignancy Confined to bed (> 72 hours) Immobilizing plaster cast Central venous access Age >= 75 History of VTE Family history of VTE Factor V Leiden Prothrombin [id number] Lupus anticoagulant Anticardiolipin antibodies Elevated serum homocysteine Heparin-induced thrombocytopenia Other congenital or acquired thrombophilia Stroke (< 1 month) Elective arthroplasty Hip, pelvis, or leg fracture Acute spinal cord injury (< 1 month) Prophylaxis Regimen: Total Risk Factor Score Risk Level Prophylaxis Regimen 0-1 Low Early ambulation 2 Moderate Order ONE of the following: *Sequential Compression Device (SCD) *Heparin 5000 units SQ BID 3-4 Higher Order ONE of the following medications: *Heparin 5000 units SQ TID *Enoxaparin/Lovenox 40 mg SQ daily (WT < 150 kg, CrCl > 30 mL/min) *Enoxaparin/Lovenox 30 mg SQ daily (WT < 150 kg, CrCl > 10-29 mL/min) *Enoxaparin/Lovenox 30 mg SQ BID (WT < 150 kg, CrCl > 30 mL/min) AND/OR *Sequential Compression Device (SCD) 5 or more Highest Order ONE of the following medications: *Heparin 5000 units SQ TID (Preferred with Epidurals) *Enoxaparin/Lovenox 40 mg SQ daily (WT < 150 kg, CrCl > 30 mL/min) *Enoxaparin/Lovenox 30 mg SQ daily (WT < 150 kg, CrCl > 10-29 mL/min) *Enoxaparin/Lovenox 30 mg SQ BID (WT < 150 kg, CrCl > 30 mL/min) AND *Sequential Compression Device (SCD) Assessment and Plan Plan This is a 58-year-old female admitted with abnormal labs with hyponatremia and hypokalemia with complaints of generalized weakness. Patient does have a history of hypertension, hypothyroidism and alcohol abuse. Recently admitted and discharged on 11/23/18 with acute sepsis metabolic encephalopathy due to bacteremia with bacillus and bilateral hospital-acquired pneumonia. It should be noted that patient has admitted almost monthly since Jul of last year for malnutrition, noncompliance and alcohol abuse with electrolyte abnormalities. Severe electrolyte abnormalities including hyponatremia and hypokalemia -K2.9/Na 124 on presentation. Patient does have acute on chronic hyponatremia -Patient was prescribed sodium chloride tablets for 3 times a day although is only been taking once a day. Will hold for now. -Also admits to an increase in fluid intake PO. Will limit fluids. -Admits to only two small bouts of diarrhea this am, otherwise has been eating and drinking a large amount of fluid, hyponatremia probably not related to dehydration but rather hypovolemia. Start samsca tonight. Continue with fluid restriction. -Replete potassium as ordered. -Repeat BMP in am. Check magnesium level. Severe protein calorie malnutrition -May be contributing to hyponatremia although patient does admit to eating and drinking well at home. -Add ensure supplements to diet. Add Megace. Hypothyroidism -Started on Synthroid during admission on 11/05/18. Recheck TSH. -Continue levothyroxine. Hypertension -Continue Norvasc 5 mg p.o. daily -Monitor BP and adjust meds as necessary. History of GERD: Continue PPI. History of alcohol abuse -Admits to drinking 1-2 beers daily. -Strongly encouraged cessation. -Continue multivitamin and folic acid. DVT prophylaxis: Heparin sq. D/w patient, patient's and Dr. Phillips.
[2018-12-08] MEDS ORDERED: Acetaminophen 325 MG Tablet PO PRN (16:29)
[2018-12-08] MEDS ORDERED: Bisacodyl 10 MG Supp RECTAL PRN (16:29)
[2018-12-08] MEDS ORDERED: Sod Chloride 0.9% Inj 1,000 ML IV.CONT SCH (16:30)
[2018-12-08 16:33] LABS: WBC,Urine 0-5 /hpf (0-5)
[2018-12-08] MEDS: Potassium Chlor 20 mEq Premix 20 MEQ/100 ML PIGGYBACK IV.SIG SCH ×2 (17:30→21:23)
[2018-12-08] MEDS ORDERED: Sodium Chloride 1 GM Tablet PO SCH (18:00)
[2018-12-08] MEDS: Heparin - SQ 10,000 UNITS/ML Vial SQ SCH (21:24)
[2018-12-09] MEDS ORDERED: Levothyroxine 50 MCG Tablet PO SCH (06:00)
[2018-12-09 06:48] LABS: Baso % (Auto) 0.2 % (0.0-2.0); Eos % (Auto) 0.7 % (0.0-4.0); Hematocrit 31.2 % (35.0-46.0); Hemoglobin 10.4 gm/dL (11.6-15.3); Lymph # (Auto) 0.6 th/mm3 (1.0-4.8); Lymph % (Auto) 17.6 % (9.0-44.0); Mean Corpuscular HGB Conc 33.4 % (32.0-36.0); Mean Corpuscular Hemoglobin 32.2 pg (27.0-34.0); Mean Corpuscular Volume 96.5 fL (80.0-100.0); Mean Platelet Volume 7.9 fL (7.0-11.0); Mono # (Auto) 0.3 th/mm3 (0.0-0.9); Mono % (Auto) 9.4 % (0.0-8.0); Neut # (Auto) 2.6 th/mm3 (1.8-7.7); Neut % (Auto) 72.1 % (16.0-70.0); Platelet Count 337 th/mm3 (150-450); Red Blood Count 3.23 mil/mm3 (4.00-5.30); White Blood Count 3.5 th/mm3 (4.0-11.0)
[2018-12-09 07:12] LABS: Anion Gap 8 meq/L (5-15); Blood Urea Nitrogen 4 mg/dL (7-18); Calcium 8.2 mg/dL (8.5-10.1); Chloride 97 meq/L (98-107); Glomerular Filtration Rate Greater Than 89 mL/min (>89); Glucose,Random 88 mg/dL (74-106); Potassium 3.6 meq/L (3.5-5.1); Sodium 133 meq/L (136-145)
[2018-12-09 08:19] VITALS: BP 117/83; PULSE 76; RESP 20; TEMP 97.3; O2SAT 96
--- NOTE | 2018-12-09 08:22 | P.PNIM ---
Subjective Interval history: Also of hypokalemia and hyponatremia. Patient seen and examined, at bedside as well. Doing much improved. Lab work improved. Patient requesting to go home. Feels much better. Eating well without any nausea or vomiting. Spoke to patient at length about plan of care. Encourage follow-up with PCP, oncologist. Limit fluid intake. Encourage sodium tablets. Encouraged to stop drinking alcohol. Patient is stable and will be discharged home to follow-up with PCP. Rx is written. Diet as tolerated. Activity as tolerated. Physical Exam Vital signs: Vital Signs 12/08/18 13:57 12/08/18 16:47 12/08/18 17:28 Temperature 98.1 F 97.5 F L Pulse Rate 78 75 78 Respiratory Rate 16 21 Blood Pressure 134/83 106/78 109/67 Pulse Oximetry 96 99 12/08/18 20:00 12/09/18 00:00 12/09/18 00:22 Temperature 97.5 F L 97.7 F Pulse Rate 77 64 84 Respiratory Rate 18 18 Blood Pressure 124/74 110/73 Pulse Oximetry 93 L 95 12/09/18 03:45 12/09/18 04:00 12/09/18 08:00 Temperature 98.9 F 97.3 F L Pulse Rate 81 81 76 Respiratory Rate 18 20 Blood Pressure 132/81 117/83 Pulse Oximetry 99 96 Intake & Output 12/08/18 12/09/18 12/09/18 18:59 06:59 18:59 Intake Total 1000 / 1000 320 / 320 Output Total 3500 / 3500 Balance 1000 / 1000 -3180 / -3180 Weight 44.906 kg 43.6 kg Intake: IV 1000 / 1000 200 / 200 KCl 20 mEq Premix Inj 20 meq In 200 / 200 100 ml @ 50 mls/hr IV.SIG Q2H EMELY Rx#:[id number] NS Inj 1,000 ML @ 1000 mls/hr 1000 / 1000 IV.SIG BOLUS EMELY Rx#:[id number] Oral 120 / 120 Output: Urine 3500 / 3500 Other: Date of Last Bowel Movement 12/08/18 Weight On Admission 44.906 kg Narrative: GENERAL: Well-developed, frail thin appearing female appears well above stated age patient in NAD. SKIN: Warm and dry. No rash. HEAD: Normocephalic. Atraumatic. EYES: Pupils equal and round. No scleral icterus. No injection or drainage. ENT: No nasal bleeding or discharge. Mucous membranes pink and moist. NECK: Supple. Trachea midline. CARDIOVASCULAR: Regular rate and rhythm. S1, S2 noted. No murmur appreciated. RESPIRATORY: No accessory muscle use. Clear to auscultation. Breath sounds equal bilaterally. GASTROINTESTINAL: Abdomen soft, non-tender, nondistended. Normoactive bowel sounds x4. MUSCULOSKELETAL: No obvious deformities. Extremities without clubbing, cyanosis , or edema. NEUROLOGICAL: Awake and alert. No obvious cranial nerve deficits. Motor grossly within normal limits. 5/5 muscle strength in bilateral upper and lower extremities. Normal speech. PSYCHIATRIC: Appropriate mood and affect; insight and judgment normal. Results Labs CBC & Chem 7: 12/09/18 05:50 12/09/18 05:50 Assessment and Plan Plan This is a 58-year-old female admitted with abnormal labs with hyponatremia and hypokalemia with complaints of generalized weakness. Patient does have a history of hypertension, hypothyroidism and alcohol abuse. Recently admitted and discharged on 11/23/18 with acute sepsis metabolic encephalopathy due to bacteremia with bacillus and bilateral hospital-acquired pneumonia. It should be noted that patient has admitted almost monthly since Jul of last year for malnutrition, noncompliance and alcohol abuse with electrolyte abnormalities. Severe electrolyte abnormalities including hyponatremia and hypokalemia. Much improved. -K2.9/Na 124 on presentation. Patient does have acute on chronic hyponatremia -Patient was prescribed sodium chloride tablets for 3 times a day although is only been taking once a day. Will continue for discharge. -Also admits to an increase in fluid intake PO. Will limit fluids. -Admits to only two small bouts of diarrhea this am, otherwise has been eating and drinking a large amount of fluid, hyponatremia probably not related to dehydration but rather hypovolemia. Gave Samsca last evening. Significant improvement in hyponatremia. Continue with fluid restriction. For home. Severe protein calorie malnutrition -May be contributing to hyponatremia although patient does admit to eating and drinking well at home. -Add ensure supplements to diet. Add Megace. Hypothyroidism -Started on Synthroid during admission on 11/05/18. Recheck TSH. -Continue levothyroxine. Hypertension -Continue Norvasc 5 mg p.o. daily -Monitor BP and adjust meds as necessary. History of GERD: Continue PPI. History of alcohol abuse -Admits to drinking 1-2 beers daily. -Strongly encouraged cessation. -Continue multivitamin and folic acid. -She states she is done drinking. D/w patient, patient's and Dr. Phillips. DC home. Follow-up PCP and oncologist. Rx is written. Diet as tolerated. Activity as tolerated. Avoid all alcohol. Progress Note: Quality VTE Deep Vein Thrombosis/Pulmonary Embolism Present on Admission: No
[2018-12-09] MEDS: Heparin - SQ 10,000 UNITS/ML Vial SQ SCH (09:10)
== END 2018-12-09 09:56 | disposition home or self-care (01) | DRG 640 ==
LOC: PHED 13:30 → PHEDA 15:36 → PH3 16:50
PROVIDERS: ADMIT Hospitalist; ATTEND Hospitalist
CPT/HCPCS: 80048; 80053; 80307; 81001; 83735; 84443; 84484; 85025; 90760; 96360; 97161; 99285; J1644; J3480; J7030